=== PATIENT | female | born 1965 | race American Indian/Alaskan Native ===

== ENCOUNTER 2016-06-18 11:36 | Emergency (ER) | payer MEDICARE ==
--- NOTE | 2016-06-18 12:28 | Emergency Department Report ---
Chief Complaint: Seizure Stated Complaint: SEIZURES/NAUSEA/PAIN Time Seen by Provider: 06/18/16 12:22 - HPI History of Present Illness: 51-year-old known seizure patient comes in for having seizures that started on of last week while she was having a dilatation of her esophagus at [facility]. Patient reports that they had intervene at the hospital and gave her a cocktail of Keppra Ativan and Dilantin. Patient refused to stay so she went home and since she's been there she has had several seizures. Patient does discloses she's been out of her Dilantin since she's completed her Ativan she does have Keppra that she has that she's been taking. Patient admits to nausea took her last Phenergan yesterday. - Exam Vital Signs: Vital Signs 06/18/16 11:44 Temperature 98.7 F Pulse Rate 74 Respiratory 16 Rate Blood Pressure 142/82 O2 Sat by Pulse 100 Oximetry Physical Exam: Patient was alert and oriented some repetitive I movement of her right eye as well as her speech was slurred lip with quivering. All of a sudden I turned around she was actively seizing I was able to catch her bring her down to the floor without hitting her head. I call for help nurse and tech Mag came to assist. Patient was transported by stretcher from the exam room to the main ER with assistance of charge nurse and a morals squad police officer. MSE screening note: Focused history and physical exam performed. Due to findings the following was ordered: Patient be evaluated in the back appropriate labs CBC CMP Dilantin Keppra orders were placed ED Disposition for MSE Condition: Stable
[2016-06-18] MEDS ORDERED: ATIVAN ONE (12:38)
[2016-06-18] MEDS ORDERED: KEPPRA 1,000 MG/NS 0.75% 100ML 100 ML IV ONE ×2 (12:39→12:45)
[2016-06-18] MEDS ORDERED: ATIVAN IV ONE (12:45)
[2016-06-18] MEDS ORDERED: VALIUM IV ONE (13:47)
[2016-06-18] MEDS ORDERED: ZOFRAN IV ONE (13:47)
[2016-06-18] MEDS ORDERED: SUBLIMAZE IV ONE ×4 (13:48→17:00)
--- NOTE | 2016-06-18 13:55 | Emergency Department Report ---
HPI - General Chief Complaint: Seizure Time Seen by Provider: 06/18/16 13:22 - HPI HPI: The patient is a 51-year-old female who presents for evaluation of pain. The patient reports pain all over her entire body, worse to the bilateral upper back and shoulders, 10 out of 10 in severity, throbbing in quality, exacerbated with movement of the upper back. She states that her symptoms began after seizure at 10 PM last night. She states that she has experienced multiple seizures since including here in the emergency department. She states that she is currently experiencing a seizure. The patient denies fever, traumatic injury to the head or back, headache, neck pain, neck stiffness, vision or hearing changes, smell or taste changes, paresthesias, facial drooping, slurred speech, urine or bowel incontinence or retention, or other focal neurological deficit. ED Past Medical Hx - Past Medical History Hx Hypertension: Yes Hx Deep Vein Thrombosis: No Hx GERD: Yes Hx Arthritis: Yes (back and hip and bilat knees) Hx Seizures: Yes Hx Asthma: No Hx HIV: No Additional medical history: ANEMIA - Surgical History Hx Pacemaker: No Hx Internal Defibrillator: No Hx Cholecystectomy: Yes Additional Surgical History: hysterectomy. SAM FUNDOPLICATION X 3. ERCP - Social History Smoking Status: Never Smoker Substance Use Type: Prescribed - Medications Home Medications: Home Medications Medication Instructions Recorded Confirmed Last Taken Type Zolpidem [Ambien] 5 mg PO HS 10/13/13 06/01/16 10/20/13 History 5mg Celecoxib [celeBREX] 200 mg PO DAILY 10/14/13 06/01/16 10/13/13 History Dexlansoprazole [Dexilant] 60 mg PO DAILY 10/14/13 06/01/16 10/21/13 History 60mg Estrogens, Conjugated [Premarin] 1.25 mg PO DAILY 10/14/13 06/01/16 10/21/13 History 1.25mg Furosemide 40 mg PO DAILY 10/14/13 06/01/16 10/21/13 History 40mg Metoprolol Tartrate 25 mg PO DAILY 10/14/13 06/01/16 10/21/13 History 25mg Paroxetine HCl [PARoxetine] 40 mg PO DAILY 10/14/13 06/01/16 10/21/13 History 40mg Furosemide [Lasix TAB] 40 mg PO QDAY #30 tablet 06/01/16 Unknown Rx Metoprolol [Lopressor TAB] 25 mg PO DAILY #30 tablet 06/01/16 Unknown Rx Potassium Chloride [K-Dur] 10 meq PO DAILY #30 06/01/16 06/01/16 10/21/13 Rx 10meq Cyclobenzaprine HCl [Flexeril 5 MG 5 mg PO Q8HR PRN #10 tab 06/18/16 Unknown Rx TAB] Phenytoin [Dilantin] 300 mg PO Q8HR #40 capsule 06/18/16 Unknown Rx levETIRAcetam [Keppra TAB] 750 mg PO BID #30 tablet 06/18/16 Unknown Rx ED Review of Systems ROS: Stated complaint: SEIZURES/NAUSEA/PAIN Other details as noted in HPI Constitutional: denies: fever ENT: denies: throat or neck pain Respiratory: denies: cough, shortness of breath Cardiovascular: denies: chest pain Endocrine: denies unexplained weight loss or gain Gastrointestinal: denies: abdominal pain, nausea Genitourinary: denies: dysuria Musculoskeletal: denies: leg swelling Skin: denies: rash Neurological: reports seizure denies: headache Hematological/Lymphatic: denies: easy bleeding or easy bruising Psych: denies sadness or hopelessness Physical Exam - Physical Exam Vital Signs: Vital Signs 06/18/16 11:44 Temperature 98.7 F Pulse Rate 74 Respiratory 16 Rate Blood Pressure 142/82 O2 Sat by Pulse 100 Oximetry Physical Exam: General: well-nourished, well-developed, no acute distress Head: Normocephalic, atraumatic Eyes: normal sclera, PERRL, EOM intact, no nystagmus ENT: Mucous membranes are pink and moist Neck: trachea midline, neck supple, No neck stiffness, no cervical adenopathy Respiratory: Breath sounds equal bilaterally, no wheezing, rales, or rhonchi Cardio: S1 and S2 present, no murmurs, rubs, gallops, capillary refill is brisk Abdomen: Normoactive bowel sounds, soft abdomen, no rigidity, no guarding or rebound tenderness Musc: No pitting edema Skin: No rash Neuro: alert oriented x4, normal cognition, speech normal, no facial drooping, no uvula or tongue deviation on protrusion, no deficit with rotation of neck or shoulder shrug, no obvious gross motor deficit in the upper or lower extremities with flexion or extension bilaterally, no obvious gross sensation deficit, 2+ symmetric reflexes on DTR testing, no coordination deficit with [id number] coord testing, romberg negative, Psych: Normal affect ED Course Vital Signs 06/18/16 11:44 Temperature 98.7 F Pulse Rate 74 Respiratory 16 Rate Blood Pressure 142/82 O2 Sat by Pulse 100 Oximetry ED Medical Decision Making - Lab Data Result diagrams: 06/18/16 Unknown 06/18/16 Unknown - Medical Decision Making The patient was seen and examined by myself. The patient is placed on a lunchroom monitor and continuous pulse ox. On initial evaluation, the patient was found to be in no distress. As there are no neuro deficits or other findings on examination concerning for acute intracranial disease process, and as the patient's symptoms are consistent with psuedoseizure, a CAT scan of the head will not be obtained at this time. IV access is established and the patient is given IV valium and fentanyl for her pain. Lab results were unremarkable. The patient was reevaluated and reported that their symptoms were markedly improved. The patient is stable for discharge with outpatient follow-up. The patient is given follow-up and return instructions. The patient expressed understanding and agreed with the plan. The patient is discharged in stable condition. Critical care attestation.: If time is entered above; I have spent that time in minutes in the direct care of this critically ill patient, excluding procedure time. ED Disposition Clinical Impression: Seizure, Acute upper back pain, Myalgia Disposition: DISCHARGED TO HOME OR SELFCARE Is pt being admited?: No Does the pt Need Aspirin: No Condition: Stable Instructions: Epilepsy (ED), Musculoskeletal Pain (ED) Prescriptions: Phenytoin [Dilantin] 300 mg PO Q8HR #40 capsule levETIRAcetam [Keppra TAB] 750 mg PO BID #30 tablet Referrals: JOSESITO RATLIFF JR, MD [Primary Care Provider] - 3-5 Days Time of Disposition: 15:38
[2016-06-18 14:59] LABS: Hematocrit 31.8 % (30.3-42.9); Hemoglobin 10.4 gm/dl (10.1-14.3); Mean Corpuscular HGB Conc 33 % (30-34); Mean Corpuscular Hemoglobin 32 pg (28-32); Mean Corpuscular Volume 97 fl (79-97); Platelet Count 265 K/mm3 (140-440); Red Blood Count 3.29 M/mm3 (3.65-5.03); Red Cell Distribution Width 12.4 % (13.2-15.2); White Blood Count 5.6 K/mm3 (4.5-11.0)
[2016-06-18] MEDS ORDERED: NACL 0.9% 1000 ML 1,000 ML IV ONE (14:59)
[2016-06-18 15:00] VITALS: BP 137/69
[2016-06-18 15:19] LABS: Anion Gap 17 mmol/L; Blood Urea Nitrogen 13 mg/dL (7-17); Calcium 8.4 mg/dL (8.4-10.2); Carbon Dioxide 25 mmol/L (22-30); Chloride 103.2 mmol/L (98-107); Glucose 96 mg/dL (65-100); Potassium 3.5 mmol/L (3.6-5.0); Sodium 142 mmol/L (137-145)
[2016-06-18] MEDS ORDERED: SUBLIMAZE ONE (16:17)
[2016-06-18] MEDS ORDERED: FLUSH HEPARIN IV ONE ×2 (16:18→16:34)
[2016-06-18 17:07] LABS: Bilirubin,Urine NEG (Negative); Blood,Urine NEG (Negative); Ketones,Urine NEG (Negative); Leukocyte Esterase,Urine TR (Negative); Mucus,Urine FEW /HPF; Nitrite,Urine NEG (Negative); Protein,Urine <15 mg/dL mg/dL (Negative); Urobilinogen,Urine < 2.0 mg/dL (<2.0)
== END 2016-06-18 16:46 | disposition home or self-care (01) ==
LOC: ED 11:36
DX: R56.9 Unspecified convulsions (principal); M54.6 Pain in thoracic spine; M79.1 Myalgia; I10 Essential (primary) hypertension; K21.9 Gastro-esophageal reflux disease without esophagitis; M19.90 Unspecified osteoarthritis, unspecified site; Z90.49 Acquired absence of other specified parts of digestive tract; Z90.710 Acquired absence of both cervix and uterus
CPT/HCPCS: 36415; 80048; 80177; 80185; 81001; 85027; 96361; 96365; 96375; 99284; J1642; J1953; J2060; J2405; J3010; J3360; J7030

== ENCOUNTER 2016-07-16 14:08 | Emergency (ER) | payer MEDICARE ==
--- NOTE | 2016-07-16 19:10 | Emergency Department Report ---
ED General Adult HPI - General Chief complaint: Seizure Stated complaint: SEIZURES/HEADACHE/NAUSEA/EMESIS Time Seen by Provider: 07/16/16 17:08 Source: patient Mode of arrival: Wheelchair Limitations: No Limitations - Related Data Home Medications Medication Instructions Recorded Confirmed Last Taken Zolpidem [Ambien] 5 mg PO HS 10/13/13 06/01/16 10/20/13 5mg Celecoxib [celeBREX] 200 mg PO DAILY 10/14/13 06/01/16 10/13/13 Dexlansoprazole [Dexilant] 60 mg PO DAILY 10/14/13 06/01/16 10/21/13 60mg Estrogens, Conjugated [Premarin] 1.25 mg PO DAILY 10/14/13 06/01/16 10/21/13 1.25mg Furosemide 40 mg PO DAILY 10/14/13 06/01/16 10/21/13 40mg Metoprolol Tartrate 25 mg PO DAILY 10/14/13 06/01/16 10/21/13 25mg Paroxetine HCl [PARoxetine] 40 mg PO DAILY 10/14/13 06/01/16 10/21/13 40mg Previous Rx's Medication Instructions Recorded Last Taken Type Furosemide [Lasix TAB] 40 mg PO QDAY #30 tablet 06/01/16 Unknown Rx Metoprolol [Lopressor TAB] 25 mg PO DAILY #30 tablet 06/01/16 Unknown Rx Potassium Chloride [K-Dur] 10 meq PO DAILY #30 06/01/16 10/21/13 Rx 10meq Cyclobenzaprine HCl [Flexeril 5 MG 5 mg PO Q8HR PRN #10 tab 06/18/16 Unknown Rx TAB] Phenytoin [Dilantin] 300 mg PO Q8HR #40 capsule 06/18/16 Unknown Rx levETIRAcetam [Keppra TAB] 750 mg PO BID #30 tablet 06/18/16 Unknown Rx Allergies Allergy/AdvReac Type Severity Reaction Status Date / Time hydromorphone HCl AdvReac Itching Verified 05/31/16 17:37 [From Dilaudid] metoclopramide HCl AdvReac Seizure Verified 05/31/16 17:37 [From Reglan] tiagabine HCl [From Gabitril] AdvReac Seizure Verified 05/31/16 17:37 I V DYE AdvReac Itching Uncoded 05/31/16 17:37 ED Review of Systems ROS: Stated complaint: SEIZURES/HEADACHE/NAUSEA/EMESIS Other details as noted in HPI ED Past Medical Hx - Past Medical History Hx Hypertension: Yes Hx Deep Vein Thrombosis: No Hx GERD: Yes Hx Arthritis: Yes (back and hip and bilat knees) Hx Seizures: Yes Hx Asthma: No Hx HIV: No Additional medical history: ANEMIA - Surgical History Hx Pacemaker: No Hx Internal Defibrillator: No Hx Cholecystectomy: Yes Additional Surgical History: hysterectomy. SAM FUNDOPLICATION X 3. ERCP - Social History Smoking Status: Never Smoker Substance Use Type: None - Medications Home Medications: Home Medications Medication Instructions Recorded Confirmed Last Taken Type Zolpidem [Ambien] 5 mg PO HS 10/13/13 06/01/16 10/20/13 History 5mg Celecoxib [celeBREX] 200 mg PO DAILY 10/14/13 06/01/16 10/13/13 History Dexlansoprazole [Dexilant] 60 mg PO DAILY 10/14/13 06/01/16 10/21/13 History 60mg Estrogens, Conjugated [Premarin] 1.25 mg PO DAILY 10/14/13 06/01/16 10/21/13 History 1.25mg Furosemide 40 mg PO DAILY 10/14/13 06/01/16 10/21/13 History 40mg Metoprolol Tartrate 25 mg PO DAILY 10/14/13 06/01/16 10/21/13 History 25mg Paroxetine HCl [PARoxetine] 40 mg PO DAILY 10/14/13 06/01/16 10/21/13 History 40mg Furosemide [Lasix TAB] 40 mg PO QDAY #30 tablet 06/01/16 Unknown Rx Metoprolol [Lopressor TAB] 25 mg PO DAILY #30 tablet 06/01/16 Unknown Rx Potassium Chloride [K-Dur] 10 meq PO DAILY #30 06/01/16 06/01/16 10/21/13 Rx 10meq Cyclobenzaprine HCl [Flexeril 5 MG 5 mg PO Q8HR PRN #10 tab 06/18/16 Unknown Rx TAB] Phenytoin [Dilantin] 300 mg PO Q8HR #40 capsule 06/18/16 Unknown Rx levETIRAcetam [Keppra TAB] 750 mg PO BID #30 tablet 06/18/16 Unknown Rx ED Physical Exam - General Limitations: No Limitations ED Course Vital Signs 07/16/16 15:19 Temperature 98.3 F Pulse Rate 73 Respiratory 16 Rate Blood Pressure 159/99 O2 Sat by Pulse 100 Oximetry Critical care attestation.: If time is entered above; I have spent that time in minutes in the direct care of this critically ill patient, excluding procedure time. ED Disposition Condition: Stable Referrals: JOSESITO RATLIFF JR, MD [Primary Care Provider] - 3-5 Days
[2016-07-16] MEDS ORDERED: KEPPRA 1,000 MG/NS 0.75% 100ML 1,000 MG/100 ML BAG IV ONE (19:36)
[2016-07-16] MEDS ORDERED: BENADRYL IV ONE (19:50)
[2016-07-16] MEDS ORDERED: ATIVAN IV ONE (19:50)
[2016-07-16] MEDS ORDERED: ZOFRAN IV ONE (19:50)
[2016-07-16 20:00] LABS: Basophils % (Auto) 0.8 % (0.0-1.8); Eosinophils % (Auto) 1.1 % (0.0-4.3); Hematocrit 34.2 % (30.3-42.9); Hemoglobin 11.1 gm/dl (10.1-14.3); Mean Corpuscular HGB Conc 33 % (30-34); Mean Corpuscular Hemoglobin 32 pg (28-32); Mean Corpuscular Volume 97 fl (79-97); Platelet Count 313 K/mm3 (140-440); Red Blood Count 3.54 M/mm3 (3.65-5.03); White Blood Count 6.8 K/mm3 (4.5-11.0)
[2016-07-16 20:04] LABS: Alanine Aminotransferase 7 units/L (7-56); Albumin 4.3 g/dL (3.9-5); Albumin/Globulin Ratio 1.5 %; Alkaline Phosphatase 77 units/L (35-129); Anion Gap 16 mmol/L; Bilirubin,Total 0.2 mg/dL (0.1-1.2); Blood Urea Nitrogen 12 mg/dL (7-17); Carbon Dioxide 27 mmol/L (22-30); Chloride 98.7 mmol/L (98-107); Glucose 97 mg/dL (65-100); Potassium 3.3 mmol/L (3.6-5.0); Sodium 138 mmol/L (137-145); Total Protein 7.2 g/dL (6.3-8.2)
--- NOTE | 2016-07-16 20:04 | Emergency Department Report ---
HPI - General Chief Complaint: Seizure Time Seen by Provider: 07/16/16 17:08 - HPI HPI: Room 3 The patient is a 51-year-old female presenting with a chief complaint of seizures. The patient states she has been attempting to make her Keppra and Dilantin last by taking incomplete doses and stretching the mild. Patient states 2 days ago she had 2 generalized tonic-clonic seizures. Yesterday the patient again had 2 generalized tonic-clonic seizures and today the patient had a seizure at home and one in the waiting. The patient's significant other states that she fell from the chair door her last seizure in the hospital and appeared to injure both of her knees. The patient states her right knee hurts greater than her left Location: Central nervous system, bilateral knees Duration: [see above] Quality: Pain Severity: Moderate Modifying factors: [see above] Context: [see above] Mode of transportation: [not driving] ED Past Medical Hx - Past Medical History Hx Hypertension: Yes Hx GERD: Yes Hx Arthritis: Yes (back and hip and bilat knees) Hx Seizures: Yes Additional medical history: ANEMIA - Surgical History Hx Cholecystectomy: Yes Additional Surgical History: hysterectomy. SAM FUNDOPLICATION X 3. ERCP - Family History Family history: no significant - Social History Smoking Status: Never Smoker Substance Use Type: None - Medications Home Medications: Home Medications Medication Instructions Recorded Confirmed Last Taken Type Zolpidem [Ambien] 5 mg PO HS 10/13/13 06/01/16 10/20/13 History 5mg Celecoxib [celeBREX] 200 mg PO DAILY 10/14/13 06/01/16 10/13/13 History Dexlansoprazole [Dexilant] 60 mg PO DAILY 10/14/13 06/01/16 10/21/13 History 60mg Estrogens, Conjugated [Premarin] 1.25 mg PO DAILY 10/14/13 06/01/16 10/21/13 History 1.25mg Furosemide 40 mg PO DAILY 10/14/13 06/01/16 10/21/13 History 40mg Metoprolol Tartrate 25 mg PO DAILY 10/14/13 06/01/16 10/21/13 History 25mg Paroxetine HCl [PARoxetine] 40 mg PO DAILY 10/14/13 06/01/16 10/21/13 History 40mg Furosemide [Lasix TAB] 40 mg PO QDAY #30 tablet 06/01/16 Unknown Rx Metoprolol [Lopressor TAB] 25 mg PO DAILY #30 tablet 06/01/16 Unknown Rx Potassium Chloride [K-Dur] 10 meq PO DAILY #30 06/01/16 06/01/16 10/21/13 Rx 10meq Cyclobenzaprine HCl [Flexeril 5 MG 5 mg PO Q8HR PRN #10 tab 06/18/16 Unknown Rx TAB] Phenytoin [Dilantin] 300 mg PO Q8HR #40 capsule 06/18/16 Unknown Rx Ibuprofen [Motrin 800 MG tab] 800 mg PO Q8HR PRN #20 tablet 07/16/16 Unknown Rx Phenytoin Sodium Extended 300 mg PO QHS #90 capsule 07/16/16 Unknown Rx levETIRAcetam [Keppra TAB] 750 mg PO BID #30 tablet 07/16/16 Unknown Rx traMADol [Ultram] 50 mg PO Q6HR PRN #14 tablet 07/16/16 Unknown Rx ED Review of Systems ROS: Stated complaint: SEIZURES/HEADACHE/NAUSEA/EMESIS Other details as noted in HPI Comment: All other systems reviewed and negative Constitutional: denies: chills, fever Eyes: denies: eye pain, eye discharge, vision change ENT: denies: ear pain, throat pain Respiratory: denies: cough, shortness of breath, wheezing Cardiovascular: denies: chest pain, palpitations Endocrine: no symptoms reported Gastrointestinal: denies: abdominal pain, nausea, diarrhea Genitourinary: denies: urgency, dysuria, discharge Musculoskeletal: denies: back pain, joint swelling, arthralgia Skin: denies: rash, lesions Neurological: other ("tremors", seizures) Psychiatric: denies: anxiety, depression Hematological/Lymphatic: denies: easy bleeding, easy bruising Physical Exam - Physical Exam Vital Signs: Vital Signs 07/16/16 15:19 Temperature 98.3 F Pulse Rate 73 Respiratory 16 Rate Blood Pressure 159/99 O2 Sat by Pulse 100 Oximetry Physical Exam: GENERAL: The patient is well-developed well-nourished female lying on stretcher appearing "jittery" which the patient states she feels when she is "trying" to have a seizure. [] HEENT: Normocephalic. Atraumatic. Extraocular motions are intact. Patient has moist mucous membranes. NECK: Supple. Trachea midline CHEST/LUNGS: Clear to auscultation. There is no respiratory distress noted. HEART/CARDIOVASCULAR: Regular. There is no tachycardia. There is no gallop rub or murmur. ABDOMEN: Abdomen is soft, nontender. Patient has normal bowel sounds. There is no abdominal distention. SKIN: There is no rash. There is no edema. There is no diaphoresis. NEURO: The patient is awake, alert, and oriented. The patient is cooperative. The patient's face was twitching however otherwise cranial nerves II through XII grossly intact, no drift. The patient has normal speech MUSCULOSKELETAL: There is no evidence of acute injury. ED Course Vital Signs 07/16/16 15:19 Temperature 98.3 F Pulse Rate 73 Respiratory 16 Rate Blood Pressure 159/99 O2 Sat by Pulse 100 Oximetry ED Medical Decision Making - Lab Data Result diagrams: 07/16/16 19:24 07/16/16 19:24 Laboratory Tests 07/16/16 07/16/16 07/16/16 19:24 19:24 19:24 WBC 6.8 RBC 3.54 L Hgb 11.1 Hct 34.2 MCV 97 MCH 32 MCHC 33 RDW 13.0 L Plt Count 313 Lymph % (Auto) 41.9 H [place] % (Auto) 4.6 Eos % (Auto) 1.1 Baso % (Auto) 0.8 Lymph # 2.8 [place] # 0.3 Eos # 0.1 Baso # 0.1 Seg Neutrophils % 51.6 Seg Neutrophils # 3.5 Sodium 138 Potassium 3.3 L Chloride 98.7 Carbon Dioxide 27 Anion Gap 16 BUN 12 Creatinine 1.0 Estimated GFR > 60 BUN/Creatinine Ratio 12.00 Glucose 97 Calcium 9.0 Total Bilirubin 0.2 Direct Bilirubin < 0.2 Indirect Bilirubin 0.0 AST 16 ALT 7 Alkaline Phosphatase 77 Total Protein 7.2 Albumin 4.3 Albumin/Globulin Ratio 1.5 Phenytoin 3.2 L - Radiology Data Radiology results: report reviewed (bilateral knee x-rays), image reviewed ( bilateral knee x-rays) interpreted by me: Bilateral knee x-rays-no definite acute fractures Bilateral knee x-rays (read by radiologist)-old fractures of the right medial femoral condyle and left fibula. No acute fractures seen. There is no joint effusion. - Differential Diagnosis seizures Critical care attestation.: If time is entered above; I have spent that time in minutes in the direct care of this critically ill patient, excluding procedure time. ED Disposition Clinical Impression: Seizure, Contusion of right knee, Contusion of left knee Disposition: DISCHARGED TO HOME OR SELFCARE Is pt being admited?: No Does the pt Need Aspirin: No Condition: Stable Instructions: Epilepsy (ED) Additional Instructions: Return to the emergency department immediately should you develop worsening symptoms, fever, inability to tolerate food or liquid or any other concerns. Prescriptions: Ibuprofen [Motrin 800 MG tab] 800 mg PO Q8HR PRN #20 tablet PRN Reason: Pain levETIRAcetam [Keppra TAB] 750 mg PO BID #30 tablet Phenytoin Sodium Extended 300 mg PO QHS #90 capsule traMADol [Ultram] 50 mg PO Q6HR PRN #14 tablet PRN Reason: Pain Referrals: JOSESITO RATLIFF JR, MD [Primary Care Provider] - 3-5 Days ROLF RUSSELL MD [Staff Physician] - 2-3 Days (Dr. Russell is an orthopedic surgeon. Please follow up with him for further evaluation of your knee pain) Time of Disposition: 22:05
[2016-07-16 20:09] LABS: Bilirubin,Direct < 0.2 mg/dL (0-0.2)
[2016-07-16] MEDS ORDERED: CEREBYX 1,000 MG.PE in NACL 0.9% 100 ML IV ONE (20:26)
[2016-07-16] MEDS ORDERED: K-DUR PO ONE (21:11)
--- NOTE | 2016-07-16 21:51 | XRay Report ---
FINAL REPORT PROCEDURE: XR KNEE BILAT 3V TECHNIQUE: Bilateral knee radiographs, standing AP view. HISTORY: pain after fall COMPARISON: No prior studies are available for comparison. FINDINGS: Right knee: Fracture (s) and/or Dislocation(s): No acute fracture is seen. There is a curvilinear density along the medial femoral condyle suggesting old fracture. Joint space(s): Normal. Soft tissues: Normal. Bone mineralization: Normal. Foreign bodies: None. Left knee: Fracture (s) and/or Dislocation(s): There is a cortical defect of the proximal fibula which could be a nondisplaced fracture. However, this appears to be old. Joint space(s): Normal. Soft tissues: Normal. Bone mineralization: Normal. Foreign bodies: None. IMPRESSION: Old fractures of the right medial femoral condyle and left fibula. No acute fracture is seen. There is no joint effusion.
[2016-07-16] MEDS ORDERED: ULTRAM PO ONE (22:41)
[2016-07-16 22:45] VITALS: BP 148/92
== END 2016-07-16 22:56 | disposition home or self-care (01) ==
LOC: ED 14:08
DX: S80.02XA Contusion of left knee, initial encounter (principal); S80.01XA Contusion of right knee, initial encounter; R56.9 Unspecified convulsions; I10 Essential (primary) hypertension; K21.9 Gastro-esophageal reflux disease without esophagitis; M19.90 Unspecified osteoarthritis, unspecified site; Z90.49 Acquired absence of other specified parts of digestive tract; Z90.710 Acquired absence of both cervix and uterus; X58.XXXA Exposure to other specified factors, initial encounter; Y93.89 Activity, other specified; Y99.8 Other external cause status; Y92.89 Other specified places as the place of occurrence of the external cause
CPT/HCPCS: 29505; 36415; 73562; 80048; 80074; 80185; 85025; 96365; 96366; 96368; 96375; 99284; J1200; J1953; J2060; J2405; Q2009

== ENCOUNTER 2016-11-02 16:07 | Emergency (ER) | payer MEDICARE ==
[2016-11-02 17:29] LABS: Bilirubin,Urine NEG (Negative); Blood,Urine NEG (Negative); Ketones,Urine NEG (Negative); Leukocyte Esterase,Urine NEG (Negative); Mucus,Urine FEW /HPF; Nitrite,Urine NEG (Negative); Protein,Urine <15 mg/dL mg/dL (Negative); Urobilinogen,Urine < 2.0 mg/dL (<2.0); WBC,Urine < 1.0 /HPF (0.0-6.0)
[2016-11-02] MEDS ORDERED: KEPPRA 500 MG in D5W 100 ML IV ONE (20:48)
[2016-11-02] MEDS ORDERED: BENADRYL IV ONE (20:48)
[2016-11-02] MEDS ORDERED: NACL 0.9% 1000 ML 1,000 ML IV ONE (20:48)
[2016-11-02] MEDS ORDERED: ZOFRAN IV ONE (20:48)
[2016-11-02 20:54] LABS: Basophils % (Auto) 0.9 % (0.0-1.8); Hematocrit 27.6 % (30.3-42.9); Mean Corpuscular HGB Conc 33 % (30-34); Mean Corpuscular Hemoglobin 32 pg (28-32); Mean Corpuscular Volume 98 fl (79-97); Platelet Count 247 K/mm3 (140-440); Red Blood Count 2.82 M/mm3 (3.65-5.03); Red Cell Distribution Width 13.4 % (13.2-15.2); White Blood Count 6.5 K/mm3 (4.5-11.0)
[2016-11-02 21:12] LABS: Anion Gap 17 mmol/L; Blood Urea Nitrogen 10 mg/dL (7-17); Calcium 7.5 mg/dL (8.4-10.2); Carbon Dioxide 22 mmol/L (22-30); Chloride 104.7 mmol/L (98-107); Glucose 94 mg/dL (65-100); Sodium 141 mmol/L (137-145)
[2016-11-02] MEDS ORDERED: FIORICET PO ONE (21:22)
[2016-11-02 22:30] VITALS: BP 161/84
--- NOTE | 2016-11-02 22:46 | Emergency Department Report ---
ED Seizure HPI - General Chief Complaint: Seizure Stated Complaint: POSS SEIZURE Time Seen by Provider: 11/02/16 20:41 Source: patient Mode of arrival: Ambulatory Limitations: No Limitations - History of Present Illness Initial Comments: 51-year-old female presents to the emergency department complaining of seizures. Patient reports a history of seizures and that she ran out of her seizure medication last week. For the past 5 days, patient has had multiple seizures. Today she began having headache and nausea. There are no other complaints. MD Complaint: seizure -: Gradual, days(s) (5) Description of Episode: tonic-clonic movement Witnessed:: No Trauma: No Seizure History: known seizure disorder, history of non-compliance Place: home Possible Precipitating Event: none Associated Symptoms: other (headache, nausea) Treatments Prior to Arrival: none - Related Data Home Medications Medication Instructions Recorded Confirmed Last Taken Zolpidem [Ambien] 5 mg PO HS 10/13/13 06/01/16 10/20/13 5mg Celecoxib [celeBREX] 200 mg PO DAILY 10/14/13 06/01/16 10/13/13 Dexlansoprazole [Dexilant] 60 mg PO DAILY 10/14/13 06/01/16 10/21/13 60mg Estrogens, Conjugated [Premarin] 1.25 mg PO DAILY 10/14/13 06/01/16 10/21/13 1.25mg Furosemide 40 mg PO DAILY 10/14/13 06/01/16 10/21/13 40mg Metoprolol Tartrate 25 mg PO DAILY 10/14/13 06/01/16 10/21/13 25mg Paroxetine HCl [PARoxetine] 40 mg PO DAILY 10/14/13 06/01/16 10/21/13 40mg Previous Rx's Medication Instructions Recorded Last Taken Type Furosemide [Lasix TAB] 40 mg PO QDAY #30 tablet 06/01/16 Unknown Rx Metoprolol [Lopressor TAB] 25 mg PO DAILY #30 tablet 06/01/16 Unknown Rx Potassium Chloride [K-Dur] 10 meq PO DAILY #30 06/01/16 10/21/13 Rx 10meq Cyclobenzaprine HCl [Flexeril 5 MG 5 mg PO Q8HR PRN #10 tab 06/18/16 Unknown Rx TAB] Ibuprofen [Motrin 800 MG tab] 800 mg PO Q8HR PRN #20 tablet 07/16/16 Unknown Rx Phenytoin Sodium Extended 300 mg PO QHS #90 capsule 07/16/16 Unknown Rx traMADol [Ultram] 50 mg PO Q6HR PRN #14 tablet 07/16/16 Unknown Rx LORazepam [Ativan] 1 mg PO TID #60 tablet 11/02/16 Unknown Rx Phenytoin [Dilantin] 100 mg PO Q8HR #90 capsule 11/02/16 Unknown Rx levETIRAcetam [Keppra TAB] 750 mg PO BID #60 tablet 11/02/16 Unknown Rx Allergies Allergy/AdvReac Type Severity Reaction Status Date / Time hydromorphone HCl AdvReac Itching Verified 11/02/16 16:30 [From Dilaudid] metoclopramide HCl AdvReac Seizure Verified 11/02/16 16:30 [From Reglan] tiagabine HCl [From Gabitril] AdvReac Seizure Verified 11/02/16 16:30 I V DYE AdvReac Itching Uncoded 11/02/16 16:30 ED Review of Systems ROS: Stated complaint: POSS SEIZURE Other details as noted in HPI Comment: All other systems reviewed and negative Gastrointestinal: nausea Neurological: headache, other (seizure) ED Past Medical Hx - Past Medical History Previous Medical History?: Yes Hx Hypertension: Yes Hx Deep Vein Thrombosis: No Hx GERD: Yes Hx Arthritis: Yes (back and hip and bilat knees) Hx Seizures: Yes Hx Asthma: No Hx HIV: No Additional medical history: ANEMIA - Surgical History Past Surgical History?: Yes Hx Pacemaker: No Hx Internal Defibrillator: No Hx Cholecystectomy: Yes Additional Surgical History: hysterectomy. SAM FUNDOPLICATION X 3. ERCP. BACK SURGERY. PORT RIGHT CHEST - Family History Family history: no significant - Social History Smoking Status: Never Smoker Substance Use Type: Prescribed - Medications Home Medications: Home Medications Medication Instructions Recorded Confirmed Last Taken Type Zolpidem [Ambien] 5 mg PO HS 10/13/13 06/01/16 10/20/13 History 5mg Celecoxib [celeBREX] 200 mg PO DAILY 10/14/13 06/01/16 10/13/13 History Dexlansoprazole [Dexilant] 60 mg PO DAILY 10/14/13 06/01/16 10/21/13 History 60mg Estrogens, Conjugated [Premarin] 1.25 mg PO DAILY 10/14/13 06/01/16 10/21/13 History 1.25mg Furosemide 40 mg PO DAILY 10/14/13 06/01/16 10/21/13 History 40mg Metoprolol Tartrate 25 mg PO DAILY 10/14/13 06/01/16 10/21/13 History 25mg Paroxetine HCl [PARoxetine] 40 mg PO DAILY 10/14/13 06/01/16 10/21/13 History 40mg Furosemide [Lasix TAB] 40 mg PO QDAY #30 tablet 06/01/16 Unknown Rx Metoprolol [Lopressor TAB] 25 mg PO DAILY #30 tablet 06/01/16 Unknown Rx Potassium Chloride [K-Dur] 10 meq PO DAILY #30 06/01/16 06/01/16 10/21/13 Rx 10meq Cyclobenzaprine HCl [Flexeril 5 MG 5 mg PO Q8HR PRN #10 tab 06/18/16 Unknown Rx TAB] Ibuprofen [Motrin 800 MG tab] 800 mg PO Q8HR PRN #20 tablet 07/16/16 Unknown Rx Phenytoin Sodium Extended 300 mg PO QHS #90 capsule 07/16/16 Unknown Rx traMADol [Ultram] 50 mg PO Q6HR PRN #14 tablet 07/16/16 Unknown Rx LORazepam [Ativan] 1 mg PO TID #60 tablet 11/02/16 Unknown Rx Phenytoin [Dilantin] 100 mg PO Q8HR #90 capsule 11/02/16 Unknown Rx levETIRAcetam [Keppra TAB] 750 mg PO BID #60 tablet 11/02/16 Unknown Rx ED Physical Exam - General Limitations: No Limitations General appearance: alert, in no apparent distress - Head Head exam: Present: atraumatic, normocephalic - Eye Eye exam: Present: normal appearance, PERRL, EOMI - ENT ENT exam: Present: normal exam, normal orophraynx, mucous membranes moist - Neck Neck exam: Present: normal inspection, full ROM. Absent: tenderness - Respiratory Respiratory exam: Present: normal lung sounds bilaterally. Absent: respiratory distress - Cardiovascular Cardiovascular Exam: Present: regular rate, normal rhythm, normal heart sounds - GI/Abdominal GI/Abdominal exam: Present: soft, normal bowel sounds. Absent: distended, tenderness - Extremities Exam Extremities exam: Present: normal inspection, full ROM. Absent: tenderness - Back Exam Back exam: Present: normal inspection, full ROM. Absent: tenderness - Neurological Exam Neurological exam: Present: alert, oriented X3. Absent: motor sensory deficit - Skin Skin exam: Present: warm, dry, intact ED Course Vital Signs 11/02/16 11/02/16 11/02/16 16:21 19:21 19:30 Temperature 98.6 F Pulse Rate 70 Respiratory 17 Rate Blood Pressure 152/93 147/81 Blood Pressure [Left] O2 Sat by Pulse 100 100 100 Oximetry 11/02/16 11/02/16 11/02/16 19:44 20:00 20:30 Temperature 97.9 F Pulse Rate 57 L Respiratory 20 Rate Blood Pressure 153/88 143/82 Blood Pressure 160/72 [Left] O2 Sat by Pulse 100 100 100 Oximetry 11/02/16 11/02/16 11/02/16 21:00 21:30 22:00 Temperature Pulse Rate Respiratory Rate Blood Pressure 155/87 156/69 161/84 Blood Pressure [Left] O2 Sat by Pulse 99 97 100 Oximetry ED Medical Decision Making - Lab Data Result diagrams: 11/02/16 20:29 11/02/16 20:29 - Medical Decision Making Laboratory results reviewed and discussed with the patient. Patient reports feeling better with medication. There's been no further seizure activity in the emergency department. Her seizure medications will be refilled. Patient will be discharged home at this time to follow up with her primary care physician. - Differential Diagnosis medication noncompliance, seizure, electrolyte abnormality Critical care attestation.: If time is entered above; I have spent that time in minutes in the direct care of this critically ill patient, excluding procedure time. ED Disposition Clinical Impression: Seizure Disposition: DISCHARGED TO HOME OR SELFCARE Is pt being admited?: No Condition: Stable Instructions: Recurrent Seizures Adult (ED) Prescriptions: levETIRAcetam [Keppra TAB] 750 mg PO BID #60 tablet LORazepam [Ativan] 1 mg PO TID #60 tablet Phenytoin [Dilantin] 100 mg PO Q8HR #90 capsule Referrals: MIKE LANGLEY MD [Primary Care Provider] - 3-5 Days Time of Disposition: 23:09
== END 2016-11-02 23:41 | disposition home or self-care (01) ==
LOC: ED 16:07
DX: G40.409 Other generalized epilepsy and epileptic syndromes, not intractable, without status epilepticus (principal); I10 Essential (primary) hypertension; K21.9 Gastro-esophageal reflux disease without esophagitis; M19.90 Unspecified osteoarthritis, unspecified site; D64.9 Anemia, unspecified; Z88.8 Allergy status to other drugs, medicaments and biological substances
CPT/HCPCS: 36415; 80048; 80185; 81001; 85025; 96365; 96375; 99284; J1200; J1953; J2405; J7030

== ENCOUNTER 2017-06-24 20:54 | Emergency (ER) | payer MEDICARE ==
[2017-06-25] MEDS ORDERED: KEPPRA 1,000 MG/NS 0.75% 100ML 1,000 MG/100 ML BAG IV ONE ×2 (07:03→07:06)
[2017-06-25] MEDS ORDERED: BENADRYL ONE (07:07)
[2017-06-25] MEDS ORDERED: BENADRYL IV ONE (07:11)
[2017-06-25 07:19] LABS: Hemoglobin 13.6 gm/dl (10.1-14.3); Mean Corpuscular HGB Conc 33 % (30-34); Mean Corpuscular Hemoglobin 32 pg (28-32); Mean Corpuscular Volume 97 fl (79-97); Platelet Count 251 K/mm3 (140-440); Red Blood Count 4.22 M/mm3 (3.65-5.03); Red Cell Distribution Width 12.2 % (13.2-15.2)
--- NOTE | 2017-06-25 07:29 | Emergency Department Report ---
HPI - General Chief Complaint: Seizure Time Seen by Provider: 06/25/17 07:06 - HPI HPI: Room 1 The patient is a 52-year-old female presented with a chief complaint of seizures. The patient states she ran out of her Dilantin approximately 2 weeks ago and she has been taking her Keppra intermittently secondary to being low. Patient complains of diffuse body aches after having her seizures. Location: [facility], see above Duration: [See above] Quality: Aching Severity: Moderate Modifying factors: [see above] Context: [see above] Mode of transportation: [not driving] ED Past Medical Hx - Past Medical History Hx Hypertension: Yes Hx GERD: Yes Hx Arthritis: Yes (back and hip and bilat knees) Hx Seizures: Yes Additional medical history: ANEMIA - Surgical History Hx Cholecystectomy: Yes Additional Surgical History: hysterectomy. SAM FUNDOPLICATION X 3. ERCP. BACK SURGERY. PORT RIGHT CHEST - Social History Smoking Status: Never Smoker Substance Use Type: None - Medications Home Medications: Home Medications Medication Instructions Recorded Confirmed Last Taken Type Zolpidem [Ambien] 5 mg PO HS 10/13/13 06/01/16 10/20/13 History 5mg Celecoxib [celeBREX] 200 mg PO DAILY 10/14/13 06/01/16 10/13/13 History Dexlansoprazole [Dexilant] 60 mg PO DAILY 10/14/13 06/01/16 10/21/13 History 60mg Estrogens, Conjugated [Premarin] 1.25 mg PO DAILY 10/14/13 06/01/16 10/21/13 History 1.25mg Furosemide 40 mg PO DAILY 10/14/13 06/01/16 10/21/13 History 40mg Metoprolol Tartrate 25 mg PO DAILY 10/14/13 06/01/16 10/21/13 History 25mg Paroxetine HCl [PARoxetine] 40 mg PO DAILY 10/14/13 06/01/16 10/21/13 History 40mg Furosemide [Lasix TAB] 40 mg PO QDAY #30 tablet 06/01/16 Unknown Rx Metoprolol [Lopressor TAB] 25 mg PO DAILY #30 tablet 06/01/16 Unknown Rx Potassium Chloride [K-Dur] 10 meq PO DAILY #30 06/01/16 06/01/16 10/21/13 Rx 10meq Cyclobenzaprine HCl [Flexeril 5 MG 5 mg PO Q8HR PRN #10 tab 06/18/16 Unknown Rx TAB] Ibuprofen [Motrin 800 MG tab] 800 mg PO Q8HR PRN #20 tablet 07/16/16 Unknown Rx traMADol [Ultram] 50 mg PO Q6HR PRN #14 tablet 07/16/16 Unknown Rx LORazepam [Ativan] 1 mg PO TID #60 tablet 11/02/16 Unknown Rx Phenytoin [Dilantin] 100 mg PO Q8HR #90 capsule 11/02/16 Unknown Rx Ibuprofen [Motrin 800 MG tab] 800 mg PO Q8HR PRN #20 tablet 06/25/17 Unknown Rx Phenytoin Sodium Extended 300 mg PO QHS #90 capsule 06/25/17 Unknown Rx levETIRAcetam [Keppra TAB] 750 mg PO BID #60 tablet 06/25/17 Unknown Rx ED Review of Systems ROS: Stated complaint: SEIZURE ACTIVITY Other details as noted in HPI Musculoskeletal: myalgia Physical Exam - Physical Exam Vital Signs: Vital Signs 06/24/17 21:08 Temperature 98.7 F Pulse Rate 50 L Respiratory 16 Rate Blood Pressure 136/101 O2 Sat by Pulse 97 Oximetry Physical Exam: GENERAL: The patient is well-developed well-nourished female lying on stretcher not appearing to be in acute distress. [] HEENT: Normocephalic. Atraumatic. Extraocular motions are intact. Patient has moist mucous membranes. NECK: Supple. Trachea midline CHEST/LUNGS: There is no respiratory distress noted. HEART/CARDIOVASCULAR: Regular. There is no tachycardia. ABDOMEN:There is no abdominal distention. SKIN: There is no rash. There is no edema. There is no diaphoresis. NEURO: The patient is awake, alert, and oriented. The patient is cooperative. The patient has normal speech MUSCULOSKELETAL: There is no evidence of acute injury. ED Course Vital Signs 06/24/17 21:08 Temperature 98.7 F Pulse Rate 50 L Respiratory 16 Rate Blood Pressure 136/101 O2 Sat by Pulse 97 Oximetry ED Medical Decision Making - Lab Data Result diagrams: 06/25/17 Unknown 06/25/17 Unknown Laboratory Tests 06/25/17 06/25/17 06/25/17 Unknown Unknown Unknown WBC 5.7 RBC 4.22 Hgb 13.6 Hct 41.0 MCV 97 MCH 32 MCHC 33 RDW 12.2 L Plt Count 251 Lymph % (Auto) Manager Occupational Add Manual Diff Complete Total Counted 100 Seg Neuts % (Manual) 35.0 L Band Neutrophils % 0 Lymphocytes % (Manual) 58.0 H Reactive Lymphs % (Man) 0 Monocytes % (Manual) 7.0 Eosinophils % (Manual) 0 Basophils % (Manual) 0 Metamyelocytes % 0 Myelocytes % 0 Promyelocytes % 0 Blast Cells % 0 Nucleated RBC % Not Reportable Seg Neutrophils # Man 2.0 Band Neutrophils # 0.0 Lymphocytes # (Manual) 3.3 Abs React Lymphs (Man) 0.0 Monocytes # (Manual) 0.4 Eosinophils # (Manual) 0.0 Basophils # (Manual) 0.0 Metamyelocytes # 0.0 Myelocytes # 0.0 Promyelocytes # 0.0 Blast Cells # 0.0 WBC Morphology Not Reportable Hypersegmented Neuts Not Reportable Hyposegmented Neuts Not Reportable Hypogranular Neuts Not Reportable Smudge Cells Not Reportable Toxic Granulation Not Reportable Toxic Vacuolation Not Reportable Dohle Bodies Not Reportable Pelger-Huet Anomaly Not Reportable Omar Rods Not Reportable Platelet Estimate Not Reportable Clumped Platelets Not Reportable Plt Clumps, EDTA Not Reportable Large Platelets Not Reportable Giant Platelets Not Reportable Platelet Satelliting Not Reportable Plt Morphology Comment Not Reportable RBC Morphology Normal Dimorphic RBCs Not Reportable Polychromasia Not Reportable Hypochromasia Not Reportable Poikilocytosis Not Reportable Anisocytosis Not Reportable Microcytosis Not Reportable Macrocytosis Not Reportable Spherocytes Not Reportable Pappenheimer Bodies Not Reportable Sickle Cells Not Reportable Target Cells Not Reportable Tear Drop Cells Not Reportable Ovalocytes Not Reportable Helmet Cells Not Reportable Deshpande-Cherokee Bodies Not Reportable [place] Rings Not Reportable [place] Cells Not Reportable Bite Cells Not Reportable Crenated Cell Not Reportable Elliptocytes Not Reportable Acanthocytes (Spur) Not Reportable Rouleaux Not Reportable Hemoglobin C Crystals Not Reportable Schistocytes Not Reportable Malaria parasites Not Reportable Bentley Bodies Not Reportable Hem Pathologist Commnt No Sodium 142 Potassium 3.5 L Chloride 99.9 Carbon Dioxide 27 Anion Gap 19 BUN 13 Creatinine 0.9 Estimated GFR > 60 BUN/Creatinine Ratio 14 Glucose 96 Calcium 9.3 Magnesium 1.90 Phenytoin 06/25/17 Unknown WBC RBC Hgb Hct MCV MCH MCHC RDW Plt Count Lymph % (Auto) Add Manual Diff Total Counted Seg Neuts % (Manual) Band Neutrophils % Lymphocytes % (Manual) Reactive Lymphs % (Man) Monocytes % (Manual) Eosinophils % (Manual) Basophils % (Manual) Metamyelocytes % Myelocytes % Promyelocytes % Blast Cells % Nucleated RBC % Seg Neutrophils # Man Band Neutrophils # Lymphocytes # (Manual) Abs React Lymphs (Man) Monocytes # (Manual) Eosinophils # (Manual) Basophils # (Manual) Metamyelocytes # Myelocytes # Promyelocytes # Blast Cells # WBC Morphology Hypersegmented Neuts Hyposegmented Neuts Hypogranular Neuts Smudge Cells Toxic Granulation Toxic Vacuolation Dohle Bodies Pelger-Huet Anomaly Omar Rods Platelet Estimate Clumped Platelets Plt Clumps, EDTA Large Platelets Giant Platelets Platelet Satelliting Plt Morphology Comment RBC Morphology Dimorphic RBCs Polychromasia Hypochromasia Poikilocytosis Anisocytosis Microcytosis Macrocytosis Spherocytes Pappenheimer Bodies Sickle Cells Target Cells Tear Drop Cells Ovalocytes Helmet Cells Deshpande-Cherokee Bodies Caliente Rings Daisy Cells Bite Cells Crenated Cell Elliptocytes Acanthocytes (Spur) Rouleaux Hemoglobin C Crystals Schistocytes Malaria parasites Bentley Bodies Hem Pathologist Commnt Sodium Potassium Chloride Carbon Dioxide Anion Gap BUN Creatinine Estimated GFR BUN/Creatinine Ratio Glucose Calcium Magnesium Phenytoin 1.1 L - Differential Diagnosis seizures Critical care attestation.: If time is entered above; I have spent that time in minutes in the direct care of this critically ill patient, excluding procedure time. ED Disposition Clinical Impression: Seizure, Subtherapeutic serum dilantin level Disposition: DC-01 TO HOME OR SELFCARE Is pt being admited?: No Does the pt Need Aspirin: No Condition: Stable Instructions: Epilepsy (ED) Additional Instructions: Return to the emergency department immediately should you develop worsening symptoms, fever, inability to tolerate food or liquid or any other concerns. Prescriptions: Ibuprofen [Motrin 800 MG tab] 800 mg PO Q8HR PRN #20 tablet PRN Reason: Pain levETIRAcetam [Keppra TAB] 750 mg PO BID #60 tablet Phenytoin Sodium Extended 300 mg PO QHS #90 capsule Referrals: MIKE LANGLEY MD [Primary Care Provider] - 3-5 Days CHRISTIE JENNINGS MD [Staff Physician] - 3-5 Days Time of Disposition: 12:45
[2017-06-25 07:38] LABS: BUN/Creatinine Ratio 14; Blood Urea Nitrogen 13 mg/dL (7-17); Calcium 9.3 mg/dL (8.4-10.2); Hemolysis Index 0
[2017-06-25 11:01] LABS: Basophils % (Manual) 0 % (0.0-1.8); Eosinophils % (Manual) 0 % (0.0-4.3); RBC Morphology Normal; Total Cells Counted 100
[2017-06-25 12:28] VITALS: BP 131/78
[2017-06-25] MEDS ORDERED: CEREBYX 1,000 MG.PE in NACL 0.9% 100 ML IV ONE (12:42)
== END 2017-06-25 14:16 | disposition home or self-care (01) ==
LOC: ED 20:54
DX: R56.9 Unspecified convulsions (principal); R89.2 Abnormal level of other drugs, medicaments and biological substances in specimens from other organs, systems and tissues; K21.9 Gastro-esophageal reflux disease without esophagitis; M19.90 Unspecified osteoarthritis, unspecified site; I10 Essential (primary) hypertension; D64.9 Anemia, unspecified; Z88.8 Allergy status to other drugs, medicaments and biological substances
CPT/HCPCS: 36415; 80048; 80185; 83735; 85007; 85025; 96365; 96375; 99284; J1200; J1953; Q2009

== ENCOUNTER 2017-11-18 07:38 | Emergency (ER) | payer MEDICARE ==
[2017-11-18 09:14] VITALS: BP 162/93
[2017-11-18] MEDS ORDERED: KEPPRA 1,000 MG/NS 0.75% 100ML 1,000 MG/100 ML BAG IV ONE (09:45)
--- NOTE | 2017-11-18 09:47 | Emergency Department Report ---
Blank Doc - Documentation Documentation: Patient is a 52-year-old [place] female past medical history of seizures who states that she's been noncompliant with her meds over the last several weeks. Patient's had numerous seizures last seizure was this morning. Patient is denying any fevers no stiffness headache nausea vomiting diarrhea chest pain or shortness of breath. Patient be moved to the main area for seizure precautions labs and loading of her Keppra and Dilantin. Patient has a port that will need accessed.
[2017-11-18] MEDS ORDERED: DILANTIN 1,000 MG in NACL 0.9% 250ML 250 ML IV NR (10:00)
[2017-11-18] MEDS ORDERED: BENADRYL IV ONE (10:21)
[2017-11-18] MEDS ORDERED: BENADRYL ONE (10:33)
[2017-11-18 11:30] LABS: Alanine Aminotransferase 12 units/L (7-56); Albumin 4.3 g/dL (3.9-5); BUN/Creatinine Ratio 18; Blood Urea Nitrogen 16 mg/dL (7-17); Calcium 9.4 mg/dL (8.4-10.2); Hemolysis Index 5
[2017-11-18] MEDS ORDERED: NORCO 5/325 PO ONE (11:39)
[2017-11-18] MEDS ORDERED: DILANTIN 1,000 MG in NACL 0.9% 250ML 250 ML IV ONE (11:42)
--- NOTE | 2017-11-18 12:33 | Emergency Department Report ---
ED Seizure HPI - General Chief Complaint: Seizure Stated Complaint: HEADACHE, DIZZINESS Time Seen by Provider: 11/18/17 09:42 Source: patient Mode of arrival: Ambulatory Limitations: No Limitations - History of Present Illness Initial Comments: Patient is a 52-year-old [place] female past medical history of seizures who states that she's been noncompliant with her meds over the last several weeks. Patient's had numerous seizures last seizure was this morning. Patient is denying any fevers no stiffness headache nausea vomiting diarrhea chest pain or shortness of breath. Patient be moved to the main area for seizure precautions labs and loading of her Keppra and Dilantin. Patient has a port that will need accessed. MD Complaint: seizure Onset/Timin -: hour(s) Duration of Episode: 10 -: second(s) Witnessed:: No Trauma: No Seizure History: known seizure disorder Place: home Possible Precipitating Event: stress Associated Symptoms: denies other symptoms Treatments Prior to Arrival: none - Related Data Home Medications Medication Instructions Recorded Confirmed Last Taken Zolpidem [Ambien] 5 mg PO HS 10/13/13 06/01/16 10/20/13 5mg Celecoxib [celeBREX] 200 mg PO DAILY 10/14/13 06/01/16 10/13/13 Dexlansoprazole [Dexilant] 60 mg PO DAILY 10/14/13 06/01/16 10/21/13 60mg Estrogens, Conjugated [Premarin] 1.25 mg PO DAILY 10/14/13 06/01/16 10/21/13 1.25mg Furosemide 40 mg PO DAILY 10/14/13 06/01/16 10/21/13 40mg Metoprolol Tartrate 25 mg PO DAILY 10/14/13 06/01/16 10/21/13 25mg Paroxetine HCl [PARoxetine] 40 mg PO DAILY 10/14/13 06/01/16 10/21/13 40mg Previous Rx's Medication Instructions Recorded Last Taken Type Furosemide [Lasix TAB] 40 mg PO QDAY #30 tablet 06/01/16 Unknown Rx Metoprolol [Lopressor TAB] 25 mg PO DAILY #30 tablet 06/01/16 Unknown Rx Potassium Chloride [K-Dur] 10 meq PO DAILY #30 06/01/16 10/21/13 Rx 10meq Cyclobenzaprine HCl [Flexeril 5 MG 5 mg PO Q8HR PRN #10 tab 06/18/16 Unknown Rx TAB] Ibuprofen [Motrin 800 MG tab] 800 mg PO Q8HR PRN #20 tablet 07/16/16 Unknown Rx traMADol [Ultram] 50 mg PO Q6HR PRN #14 tablet 07/16/16 Unknown Rx LORazepam [Ativan] 1 mg PO TID #60 tablet 11/02/16 Unknown Rx Phenytoin [Dilantin] 100 mg PO Q8HR #90 capsule 11/02/16 Unknown Rx Ibuprofen [Motrin 800 MG tab] 800 mg PO Q8HR PRN #20 tablet 06/25/17 Unknown Rx Phenytoin Sodium Extended 300 mg PO QHS #90 capsule 06/25/17 Unknown Rx levETIRAcetam [Keppra TAB] 750 mg PO BID #60 tablet 06/25/17 Unknown Rx Acetaminophen/Codeine [Tylenol 1 tab PO Q6H PRN #5 tab 11/18/17 Unknown Rx /Codeine # 3 tab] Allergies Allergy/AdvReac Type Severity Reaction Status Date / Time hydromorphone HCl AdvReac Itching Verified 06/24/17 21:08 [From Dilaudid] metoclopramide HCl AdvReac Seizure Verified 06/24/17 21:08 [From Reglan] tiagabine HCl [From Gabitril] AdvReac Seizure Verified 06/24/17 21:08 I V DYE AdvReac Itching Uncoded 11/02/16 16:30 ED Review of Systems ROS: Stated complaint: HEADACHE, DIZZINESS Other details as noted in HPI Constitutional: denies: chills, fever Eyes: denies: eye pain, eye discharge, vision change ENT: denies: ear pain, throat pain Respiratory: denies: cough, shortness of breath, wheezing Cardiovascular: denies: chest pain, palpitations Endocrine: no symptoms reported Gastrointestinal: denies: abdominal pain, nausea, diarrhea Genitourinary: denies: urgency, dysuria, discharge Musculoskeletal: denies: back pain, joint swelling, arthralgia Skin: denies: rash, lesions Neurological: other (siezure ). denies: headache, weakness, numbness, paresthesias, confusion, abnormal gait, vertigo Psychiatric: denies: anxiety, depression Hematological/Lymphatic: denies: easy bleeding, easy bruising ED Past Medical Hx - Past Medical History Hx Hypertension: Yes Hx GERD: Yes Hx Arthritis: Yes (back and hip and bilat knees) Hx Seizures: Yes Additional medical history: ANEMIA - Surgical History Hx Pacemaker: No Hx Cholecystectomy: Yes Additional Surgical History: hysterectomy. SAM FUNDOPLICATION X 3. 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 ERCP. BACK SURGERY. PORT RIGHT CHEST - Social History Smoking Status: Never Smoker Substance Use Type: Alcohol - Medications Home Medications: Home Medications Medication Instructions Recorded Confirmed Last Taken Type Zolpidem [Ambien] 5 mg PO HS 10/13/13 06/01/16 10/20/13 History 5mg Celecoxib [celeBREX] 200 mg PO DAILY 10/14/13 06/01/16 10/13/13 History Dexlansoprazole [Dexilant] 60 mg PO DAILY 10/14/13 06/01/16 10/21/13 History 60mg Estrogens, Conjugated [Premarin] 1.25 mg PO DAILY 10/14/13 06/01/16 10/21/13 History 1.25mg Furosemide 40 mg PO DAILY 10/14/13 06/01/16 10/21/13 History 40mg Metoprolol Tartrate 25 mg PO DAILY 10/14/13 06/01/16 10/21/13 History 25mg Paroxetine HCl [PARoxetine] 40 mg PO DAILY 10/14/13 06/01/16 10/21/13 History 40mg Furosemide [Lasix TAB] 40 mg PO QDAY #30 tablet 06/01/16 Unknown Rx Metoprolol [Lopressor TAB] 25 mg PO DAILY #30 tablet 06/01/16 Unknown Rx Potassium Chloride [K-Dur] 10 meq PO DAILY #30 06/01/16 06/01/16 10/21/13 Rx 10meq Cyclobenzaprine HCl [Flexeril 5 MG 5 mg PO Q8HR PRN #10 tab 06/18/16 Unknown Rx TAB] Ibuprofen [Motrin 800 MG tab] 800 mg PO Q8HR PRN #20 tablet 07/16/16 Unknown Rx traMADol [Ultram] 50 mg PO Q6HR PRN #14 tablet 07/16/16 Unknown Rx LORazepam [Ativan] 1 mg PO TID #60 tablet 11/02/16 Unknown Rx Phenytoin [Dilantin] 100 mg PO Q8HR #90 capsule 11/02/16 Unknown Rx Ibuprofen [Motrin 800 MG tab] 800 mg PO Q8HR PRN #20 tablet 06/25/17 Unknown Rx Phenytoin Sodium Extended 300 mg PO QHS #90 capsule 06/25/17 Unknown Rx levETIRAcetam [Keppra TAB] 750 mg PO BID #60 tablet 06/25/17 Unknown Rx Acetaminophen/Codeine [Tylenol 1 tab PO Q6H PRN #5 tab 11/18/17 Unknown Rx /Codeine # 3 tab] ED Physical Exam - General Limitations: No Limitations General appearance: alert, in no apparent distress - Head Head exam: Present: atraumatic, normocephalic - Eye Eye exam: Present: normal appearance, PERRL, EOMI Pupils: Present: normal accommodation - ENT ENT exam: Present: normal orophraynx, mucous membranes moist, TM's normal bilaterally, normal external ear exam - Neck Neck exam: Present: normal inspection, full ROM. Absent: tenderness, lymphadenopathy, thyromegaly - Respiratory Respiratory exam: Present: normal lung sounds bilaterally. Absent: respiratory distress, wheezes, stridor - Cardiovascular Cardiovascular Exam: Present: regular rate, normal rhythm, normal heart sounds. Absent: systolic murmur, diastolic murmur, rubs, gallop - GI/Abdominal GI/Abdominal exam: Present: soft, normal bowel sounds - Rectal Rectal exam: Present: deferred - Extremities Exam Extremities exam: Present: normal inspection - Back Exam Back exam: Present: normal inspection. Absent: tenderness, CVA tenderness (R), CVA tenderness (L), muscle spasm, paraspinal tenderness, vertebral tenderness - Neurological Exam Neurological exam: Present: alert, oriented X3, CN II-XII intact, normal gait, reflexes normal. Absent: motor sensory deficit - Expanded Neurological Exam Expanded Neurological exam: Absent: ataxia, tremor Patient oriented to: Present: person, place, time Speech: Present: fluid speech Cranial nerves: EOM's Intact: Normal, Gag Reflex: Normal, Tongue Deviation: Normal, Nystagmus: Normal, Facial Sensation: Normal Cerebellar function: Finger to Nose: Normal, Heel to [place]: Normal, Romberg: Normal Upper motor neuron: Edmund Neglect: Normal, Pronator Drift: Normal, Babinski Sign : Normal, Sensory Extinction: Normal Sensory exam: Upper Extremity Light Touch: Normal, Upper Extremity Pin Prick: Normal, Upper Extremity Temperature: Normal, UE 2 Point Discrimination: Normal, Lower Extremity Light Touch: Normal, Lower Extremity Pin Prick: Normal, Lower Extremity Temperature: Normal, LE 2 Point Discrimination: Normal Motor strength exam: RUE: 5, LUE: 5, RLE: 5, LLE: 5 DTR: bicep (R): 2+, bicep (L): 2+, tricep (R): 2+, tricep (L): 2+, knee (R): 2+ , knee (L): 2+, ankle (R): 2+, ankle (L): 2+ Best Eye Response (Clarkson): (4) open spontaneously Best Motor Response (José Miguel): (6) obeys commands Best Verbal Response (Clarkson): (5) oriented José Miguel Total: 15 - Psychiatric Psychiatric exam: Present: normal affect, normal mood - Skin Skin exam: Present: warm, dry, intact, normal color. Absent: rash ED Course Vital Signs 11/18/17 11/18/17 11/18/17 09:05 11:05 11:56 Temperature 98.2 F Pulse Rate 93 H Respiratory 18 18 Rate Blood Pressure 162/93 O2 Sat by Pulse 99 Oximetry ED Medical Decision Making - Lab Data Result diagrams: 11/18/17 10:50 Laboratory Tests 11/18/17 11/18/17 10:50 10:50 Sodium 144 Potassium 3.5 L Chloride 104.3 Carbon Dioxide 27 Anion Gap 16 BUN 16 Creatinine 0.9 Estimated GFR > 60 BUN/Creatinine Ratio 18 Glucose 98 Calcium 9.4 Magnesium 2.00 Total Bilirubin 0.30 AST 18 ALT 12 Alkaline Phosphatase 67 Total Protein 7.2 Albumin 4.3 Albumin/Globulin Ratio 1.5 - Medical Decision Making Current exam patient is an O 3 no dizziness no headache no numbness no paresthesia patient denies oral is no chest pain or shortness of breath patient is a and O 3 patient is ambulatory gait is steady . There are exam normal cranial nerve II through XII grossly intact patient states did not urinate or defecate during seizure seizure for approximately 10 seconds patient ambulatory and ED patient states that she has Dilantin and Keppra in her position home higher has not been taking probably due to stress at home and [id number] today or expecting a baby but concerning aborting the patient lives with them concern of losing the baby patient denies SI or HI this time patient counseled on stress in relation to his seizure threshold patient with Dilantin and Marcus today plan follow with PCP Dr. shantel yoon in 2-3 days follow with neurology Dr. Barnett in 2-3 days take all medications as prescribed and return to ED if symptoms worsen patient verbalized understanding and agreement with discharge plan for DC'd home in stable condition at this time Critical care attestation.: If time is entered above; I have spent that time in minutes in the direct care of this critically ill patient, excluding procedure time. ED Disposition Clinical Impression: Seizure Disposition: DC-01 TO HOME OR SELFCARE Is pt being admited?: No Does the pt Need Aspirin: No Condition: Good Instructions: Recurrent Seizures Adult (ED), Women and Epilepsy (ED) Prescriptions: Acetaminophen/Codeine [Tylenol /Codeine # 3 tab] 1 tab PO Q6H PRN #5 tab PRN Reason: pain Referrals: MIKE LANGLEY MD [Primary Care Provider] - 3-5 Days CAL SANTILLAN MD [Referring] - 3-5 Days Forms: Work/School Release Form(ED) Time of Disposition: 12:36
== END 2017-11-18 13:38 | disposition home or self-care (01) ==
LOC: ED 07:38
DX: R56.9 Unspecified convulsions (principal); I10 Essential (primary) hypertension; K21.9 Gastro-esophageal reflux disease without esophagitis; D64.9 Anemia, unspecified; M19.90 Unspecified osteoarthritis, unspecified site; Z90.710 Acquired absence of both cervix and uterus; Z88.8 Allergy status to other drugs, medicaments and biological substances; Z91.041 Radiographic dye allergy status
CPT/HCPCS: 36415; 80048; 80053; 83735; 96365; 96366; 96375; 99284; J1165; J1200; J1953; J7050

== ENCOUNTER 2018-01-28 17:32 | Inpatient (IN) | payer MEDICARE ==
[2018-01-28] MEDS ORDERED: NACL 0.9% 1000 ML 1,000 ML IV ONE (20:30)
[2018-01-28] MEDS ORDERED: KEPPRA 1,000 MG/NS 0.75% 100ML 1,000 MG/100 ML BAG IV ONE (20:31)
[2018-01-28] MEDS ORDERED: DILANTIN 1,000 MG in NACL 0.9% 250ML 250 ML IV ONE (20:32)
[2018-01-28] MEDS ORDERED: BENADRYL IV ONE (20:32)
--- NOTE | 2018-01-28 20:35 | Emergency Department Report ---
HPI - General Chief Complaint: Seizure Time Seen by Provider: 01/28/18 19:42 - HPI HPI: 53-year-old AA female presents to the emergency Department from home by EMS with complaint of a witnessed seizure. She says that her [id number] witnessed the seizure and called the ambulance. She says that she's been having a few seizures over the past few days. She is on phenytoin 100 mg 3 times daily, Keppra 750 mg twice daily and Xanax 1 mg 3 times a day but does not take all these medications compliantly in their entirety. She does have a seizure history and says that she gets focal seizures. She was here in the past and referred to a local neurologist, whose name she cannot currently remember, but she says she has an appointment coming up next week. ED Past Medical Hx - Past Medical History Hx Hypertension: Yes Hx GERD: Yes Hx Arthritis: Yes (back and hip and bilat knees) Hx Seizures: Yes Additional medical history: ANEMIA - Surgical History Hx Pacemaker: No Hx Cholecystectomy: Yes Additional Surgical History: hysterectomy. SAM FUNDOPLICATION X 3. 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 ERCP. BACK SURGERY. PORT RIGHT CHEST - Social History Smoking Status: Never Smoker Substance Use Type: None - Medications Home Medications: Home Medications Medication Instructions Recorded Confirmed Last Taken Type Zolpidem [Ambien] 5 mg PO HS 10/13/13 06/01/16 10/20/13 History 5mg Celecoxib [celeBREX] 200 mg PO DAILY 10/14/13 06/01/16 10/13/13 History Dexlansoprazole [Dexilant] 60 mg PO DAILY 10/14/13 06/01/16 10/21/13 History 60mg Estrogens, Conjugated (Nf) 1.25 mg PO DAILY 10/14/13 06/01/16 10/21/13 History [Premarin (Nf)] 1.25mg Furosemide 40 mg PO DAILY 10/14/13 06/01/16 10/21/13 History 40mg Metoprolol Tartrate 25 mg PO DAILY 10/14/13 06/01/16 10/21/13 History 25mg PARoxetine HCl [PARoxetine] 40 mg PO DAILY 10/14/13 06/01/16 10/21/13 History 40mg Furosemide [Lasix TAB] 40 mg PO QDAY #30 tablet 06/01/16 Unknown Rx Metoprolol [Lopressor TAB] 25 mg PO DAILY #30 tablet 06/01/16 Unknown Rx Potassium Chloride [K-Dur] 10 meq PO DAILY #30 06/01/16 06/01/16 10/21/13 Rx 10meq Cyclobenzaprine HCl [Flexeril 5 MG 5 mg PO Q8HR PRN #10 tab 06/18/16 Unknown Rx TAB] Ibuprofen [Motrin 800 MG tab] 800 mg PO Q8HR PRN #20 tablet 07/16/16 Unknown Rx traMADol [Ultram] 50 mg PO Q6HR PRN #14 tablet 07/16/16 Unknown Rx LORazepam [Ativan] 1 mg PO TID #60 tablet 11/02/16 Unknown Rx Phenytoin [Dilantin] 100 mg PO Q8HR #90 capsule 11/02/16 Unknown Rx Ibuprofen [Motrin 800 MG tab] 800 mg PO Q8HR PRN #20 tablet 06/25/17 Unknown Rx Phenytoin Sodium Extended 300 mg PO QHS #90 capsule 06/25/17 Unknown Rx levETIRAcetam [Keppra TAB] 750 mg PO BID #60 tablet 06/25/17 Unknown Rx Acetaminophen/Codeine [Tylenol 1 tab PO Q6H PRN #5 tab 11/18/17 Unknown Rx /Codeine # 3 tab] ED Review of Systems ROS: Stated complaint: SEIZURES/HEADACHE Other details as noted in HPI Comment: All other systems reviewed and negative Constitutional: denies: chills, fever Eyes: denies: eye pain, eye discharge, vision change ENT: denies: ear pain, throat pain Respiratory: denies: cough, shortness of breath, wheezing Cardiovascular: denies: chest pain, palpitations Gastrointestinal: denies: abdominal pain, nausea, diarrhea Genitourinary: denies: urgency, dysuria, discharge Musculoskeletal: denies: back pain, joint swelling, arthralgia Skin: denies: rash, lesions Neurological: headache, other (seizure). denies: numbness Physical Exam - Physical Exam Vital Signs: Vital Signs 01/28/18 01/28/18 17:39 19:46 Temperature 98.6 F Pulse Rate 75 60 Respiratory 16 10 L Rate Blood Pressure 159/78 O2 Sat by Pulse 100 100 Oximetry Physical Exam: GENERAL: The patient is well-developed well-nourished. HENT: Normocephalic. Atraumatic. Patient has moist mucous membranes. EYES: Extraocular motions are intact. Pupils equal reactive to light bilaterally. There is some fatigable horizontal nystagmus. The patient has left eye twitching. NECK: Supple. Trachea is midline. CHEST/LUNGS: Clear to auscultation. There is no respiratory distress noted. HEART/CARDIOVASCULAR: Regular. There is no tachycardia. There is no murmur. ABDOMEN: Abdomen is soft, nontender. Patient has normal bowel sounds. There is no abdominal distention. SKIN: Skin is warm and dry. NEURO: The patient is awake, alert, and oriented. The patient is cooperative. No sensory deficits. Patient has mild bilateral upper extremity distal tremor. The patient has normal speech. Cranial nerves II through XII grossly intact. MUSCULOSKELETAL: There is no tenderness or deformity. There is no limitation range of motion. There is no evidence of acute injury. ED Course Vital Signs 01/28/18 01/28/18 17:39 19:46 Temperature 98.6 F Pulse Rate 75 60 Respiratory 16 10 L Rate Blood Pressure 159/78 O2 Sat by Pulse 100 100 Oximetry ED Medical Decision Making - Lab Data Result diagrams: 01/28/18 20:47 01/28/18 20:47 - Radiology Data Radiology results: report reviewed EXAM: CT HEAD/BRAIN WO CON HISTORY: seizures TECHNIQUE: Noncontrast CT axial images of the brain. PRIORS: None. FINDINGS: No parenchymal mass, mass effect, hemorrhage, midline shift or hydrocephalus. No evidence of acute cortical infarct. No abnormal, extra-axial fluid or air collection. Osseous calvarium grossly intact. IMPRESSION: 1. No acute intracranial findings. Transcribed By: [facility] Dictated By: CHRISTIAN ROMERO MD Electronically Authenticated By: CHRISTIAN ROMERO MD Signed Date/Time: 01/28/18 2481 - Medical Decision Making This patient came in with the complaint of a witnessed seizure and then allegedly one upon arrival. The patient also says that she has had at least one seizure each day over the past few days. She admits to some relative noncompliance to her medication and she will take the meds each day but not necessarily multiple times as prescribed. She has a distal upper extremity tremor and some facial twitching but otherwise is awake and alert. Since the patient has had multiple seizures in the past 2 days, a CT scan of the head without contrast was done that did not show any acute intracranial processes. Patient had some abnormal behavior while she was in the emergency department which may have been another seizure, but otherwise the patient was found in what appeared to be a postictal state with some of her IV fluids but attached and dripping onto the floor. Patient was loaded with Keppra and phenytoin. She was found to be slightly subtherapeutic with the phenytoin. The patient does not yet have close follow-up with neurology and has multiple recent seizures and is subtherapeutic for the antiepileptic medications, the patient will be admitted to the hospital for further evaluation and treatment and was accepted for admission by the hospitalist, Dr. Michaels. - Differential Diagnosis seizures, pseudoseizures, TIA, electrolyte abnormalities Critical Care Time: No Critical care attestation.: If time is entered above; I have spent that time in minutes in the direct care of this critically ill patient, excluding procedure time. ED Disposition Clinical Impression: Seizure, Subtherapeutic phenytoin level Hypertension Qualifiers: Hypertension type: essential hypertension Qualified Code(s): I10 - Essential ( primary) hypertension Disposition: DC-01 TO HOME OR SELFCARE Is pt being admited?: No Condition: Fair Time of Disposition: 02:24
[2018-01-28] MEDS ORDERED: NORCO 5/325 PO ONE (20:53)
[2018-01-28 21:04] LABS: Basophils # (Auto) 0.1 K/mm3 (0.0-0.1); Eosinophils % (Auto) 0.9 % (0.0-4.3); Hematocrit 31.6 % (30.3-42.9); Hemoglobin 10.5 gm/dl (10.1-14.3); Lymphocytes # (Auto) 2.4 K/mm3 (1.2-5.4); Lymphocytes % (Auto) 44.9 % (13.4-35.0); Mean Corpuscular HGB Conc 33 % (30-34); Mean Corpuscular Hemoglobin 32 pg (28-32); Mean Corpuscular Volume 97 fl (79-97); Monocytes # (Auto) 0.3 K/mm3 (0.0-0.8); Monocytes % (Auto) 4.8 % (0.0-7.3); Platelet Count 281 K/mm3 (140-440); Red Blood Count 3.27 M/mm3 (3.65-5.03); Red Cell Distribution Width 13.4 % (13.2-15.2)
[2018-01-28 21:25] LABS: Alanine Aminotransferase 16 units/L (7-56); Albumin 3.9 g/dL (3.9-5); BUN/Creatinine Ratio 13; Blood Urea Nitrogen 12 mg/dL (7-17); Hemolysis Index 0
[2018-01-28] MEDS ORDERED: ZOFRAN ONE (22:35)
[2018-01-28] MEDS ORDERED: ZOFRAN IV ONE (22:40)
--- NOTE | 2018-01-28 23:01 | Cat Scan Report ---
FINAL REPORT EXAM: CT HEAD/BRAIN WO CON HISTORY: seizures TECHNIQUE: Noncontrast CT axial images of the brain. PRIORS: None. FINDINGS: No parenchymal mass, mass effect, hemorrhage, midline shift or hydrocephalus. No evidence of acute cortical infarct. No abnormal, extra-axial fluid or air collection. Osseous calvarium grossly intact. IMPRESSION: 1. No acute intracranial findings.
[2018-01-29] MEDS ORDERED: SODIUM CHLORIDE FLUSH SYRINGE 10 ML IV PRN (00:11)
[2018-01-29] MEDS ORDERED: ZOFRAN IV PRN (00:11)
[2018-01-29] MEDS ORDERED: TYLENOL PO PRN (00:11)
--- NOTE | 2018-01-29 00:22 | History and Physical Report ---
History of Present Illness Date of examination: 01/29/18 History of present illness: 53-year-old male with a history of seizure, hypertension, GERD, osteoarthritis comes to emergency room with complaints of having seizures since last week. The patient is maintained on Keppra, Dilantin, she does not take her medicine as she is supposed to. Patient states the medications make her drowsy. States she had 2 seizures today Review of systems Constitutional: no weight loss, chills, fever Ears, eyes, nose, mouth and throat: no nasal congestion, no nasal discharge, no sinus pressure, no vision change, no red eye. Neck: No neck pain or rigidity. Cardiovascular: no chest pain, palpitations Respiratory: no cough, shortness of breath Gastrointestinal: no abdominal pain hematochezia Genitourinary : no frequency , no hematuria Musculoskeletal: no joint swelling or muscle ache Integumentary: no rash, no pruritis Neurological: no parathesias, no focal weakness Endocrine: no cold or heat intolerance, no polyuria or polydipsia Hematologic/Lymphatic: no easy bruising, no easy bleeding, no gland swelling Allergic/Immunologic: no urticaria, no angioedema. PAST MEDICAL HISTORY: seizure, hypertension, GERD, osteoarthritis PAST SURGICAL HISTORY: Hysterectomy, back surgery, Rekha fundoplication SOCIAL HISTORY: No alcohol, no drugs, tobacco FAMILY HISTORY: Hypertension Medications and Allergies Allergies Allergy/AdvReac Type Severity Reaction Status Date / Time hydromorphone HCl AdvReac Itching Verified 06/24/17 21:08 [From Dilaudid] metoclopramide HCl AdvReac Seizure Verified 06/24/17 21:08 [From Reglan] tiagabine HCl [From Gabitril] AdvReac Seizure Verified 06/24/17 21:08 I V DYE AdvReac Itching Uncoded 11/02/16 16:30 Home Medications Medication Instructions Recorded Confirmed Last Taken Type Zolpidem [Ambien] 5 mg PO HS 10/13/13 06/01/16 10/20/13 History 5mg Celecoxib [celeBREX] 200 mg PO DAILY 10/14/13 06/01/16 10/13/13 History Dexlansoprazole [Dexilant] 60 mg PO DAILY 10/14/13 06/01/16 10/21/13 History 60mg Estrogens, Conjugated (Nf) 1.25 mg PO DAILY 10/14/13 06/01/16 10/21/13 History [Premarin (Nf)] 1.25mg Furosemide 40 mg PO DAILY 10/14/13 06/01/16 10/21/13 History 40mg Metoprolol Tartrate 25 mg PO DAILY 10/14/13 06/01/16 10/21/13 History 25mg PARoxetine HCl [PARoxetine] 40 mg PO DAILY 10/14/13 06/01/16 10/21/13 History 40mg Furosemide [Lasix TAB] 40 mg PO QDAY #30 tablet 06/01/16 Unknown Rx Metoprolol [Lopressor TAB] 25 mg PO DAILY #30 tablet 06/01/16 Unknown Rx Potassium Chloride [K-Dur] 10 meq PO DAILY #30 06/01/16 06/01/16 10/21/13 Rx 10meq Cyclobenzaprine HCl [Flexeril 5 MG 5 mg PO Q8HR PRN #10 tab 06/18/16 Unknown Rx TAB] Ibuprofen [Motrin 800 MG tab] 800 mg PO Q8HR PRN #20 tablet 07/16/16 Unknown Rx traMADol [Ultram] 50 mg PO Q6HR PRN #14 tablet 07/16/16 Unknown Rx LORazepam [Ativan] 1 mg PO TID #60 tablet 11/02/16 Unknown Rx Phenytoin [Dilantin] 100 mg PO Q8HR #90 capsule 11/02/16 Unknown Rx Ibuprofen [Motrin 800 MG tab] 800 mg PO Q8HR PRN #20 tablet 06/25/17 Unknown Rx Phenytoin Sodium Extended 300 mg PO QHS #90 capsule 06/25/17 Unknown Rx levETIRAcetam [Keppra TAB] 750 mg PO BID #60 tablet 06/25/17 Unknown Rx Acetaminophen/Codeine [Tylenol 1 tab PO Q6H PRN #5 tab 11/18/17 Unknown Rx /Codeine # 3 tab] Active Meds: Active Medications Acetaminophen (Tylenol) 650 mg PO Q4H PRN PRN Reason: Pain MILD(1-3)/Fever >100.5/ADAME Enoxaparin Sodium (Lovenox) 30 mg SUB-Q QDAY AMY Ondansetron HCl (Zofran) 4 mg IV Q4H PRN PRN Reason: Nausea And Vomiting Sodium Chloride (Sodium Chloride Flush Syringe 10 Ml) 10 ml IV BID AMY Sodium Chloride (Sodium Chloride Flush Syringe 10 Ml) 10 ml IV PRN PRN PRN Reason: LINE FLUSH Exam - Physical Exam Narrative exam: Gen. appearance: Patient lying in bed, no apparent distress HEENT: Normocephalic, atraumatic, pupils equally round and reactive to light, extraocular movement intact, and no sclericterus,. No JVD or thyromegaly or nodule,neck supple, no carotid bruit ,mucous membranes moist, no exudate or erythema Heart: S1, S2, regular rate and rhythm Lungs: Clear bilaterally, breathing comfortable Abdomen: Positive bowel sounds, non-tender, nondistended, no organomegaly Extremity:no edema cyanosis, clubbing Skin: no rash, dry, warm Neuro: Oriented 3, cranial nerves II-12 intact, speech is fluent, motor and sensory intact - Constitutional Vitals: Temp Pulse Resp BP Pulse Ox 98.6 F 65 15 149/75 97 01/28/18 17:39 01/29/18 00:01 01/29/18 00:01 01/29/18 00:01 01/28/18 21:45 Results - Labs CBC & Chem 7: 01/28/18 20:47 01/28/18 20:47 Labs: Abnormal lab results 01/28/18 01/28/18 Range/Units 20:47 20:47 RBC 3.27 L (3.65-5.03) M/mm3 Lymph % (Auto) 44.9 H (13.4-35.0) % Phenytoin 0.8 L (10.0-20.0) ug/mL - Imaging and Cardiology CT Scan - head: report reviewed Assessment and Plan Assessment Acute on chronic seizure secondary to noncompliance Hypertension GERD osteoarthritis Plan Admit to medicine restart medication, IV Ativan as needed for breakthrough seizures Consult neurology DVT prophylaxis
[2018-01-29] MEDS: DILANTIN PO SCH ×3 (06:54→21:16)
[2018-01-29] MEDS: ATIVAN PO SCH ×3 (08:10→21:15)
--- NOTE | 2018-01-29 08:47 | Discharge Summary ---
Providers - Providers Date of Admission: 01/29/18 00:11 Date of discharge: 01/30/18 Attending physician: GERMAN MCKAY 01/29/18 00:11 Consult to Physician [CONS] Routine Comment: Consulting Provider: ANTONINA ARGUELLES Physician Instructions: Reason For Exam: luis Primary care physician: EDUCATION NURSE Hospitalization Reason for admission: fall Condition: Fair Hospital course: 58-year-old female presents to the emergency department from [facility] for a general medical evaluation. The patient is nonverbal and the staff member from [facility] says that is how the patient has been since she has been at their facility. Since the patient is nonverbal she is a poor historian. She has been seen here one time in the past when she was also at [facility] at that time, back in August of this year, and she was found to have some type of bipolar disorder and acute psychotic event at that time. It also appears the patient has history of diabetes. The patient was brought in because she was found to have some "knots" to the forehead and some areas of bruising. They think that she had falls prior to coming in to the facility but still wanted her to get checked out. The patient underwent extensive radiographic evaluation with pelvic and chest x-rays that were found to be negative. Cervical spine and head CT also negative. The patient also was noted to have hypokalemia which was repleted. Patient will be transferred back to room was. Dedicated discharge 31 minutes. Disposition: DC/TX-70 ANOTHER TYPE THCARE Time spent for discharge: 31 - Discharge Diagnoses (1) Bipolar 1 disorder Status: Acute (2) Hypertension Status: Acute Qualifiers: Hypertension type: essential hypertension Qualified Code(s): I10 - Essential (primary) hypertension Core Measure Documentation - Palliative Care Palliative Care/ Comfort Measures: Not Applicable - Core Measures Any of the following diagnoses?: none Exam - Constitutional Vitals: Temp Pulse Resp BP Pulse Ox 98.1 F 63 16 123/76 91 01/29/18 06:22 01/29/18 06:22 01/29/18 06:22 01/29/18 06:22 01/29/18 06:22 General appearance: Present: no acute distress, well-nourished - EENT Eyes: Present: PERRL ENT: hearing intact, clear oral mucosa - Neck Neck: Present: supple, normal ROM - Respiratory Respiratory effort: normal Respiratory: bilateral: CTA - Cardiovascular Heart Sounds: Present: S1 & S2. Absent: rub, click - Extremities Extremities: pulses symmetrical, No edema Peripheral Pulses: within normal limits - Abdominal General gastrointestinal: Present: soft, non-tender, non-distended, normal bowel sounds Female genitourinary: Present: normal - Integumentary Integumentary: Present: clear, warm, dry - Musculoskeletal Musculoskeletal: gait normal, strength equal bilaterally - Psychiatric Psychiatric: appropriate mood/affect, intact judgment & insight - Neurologic Neurologic: CNII-XII intact, moves all extremities Plan Activity: no restrictions Weight Bearing Status: Full Weight Bearing Diet: regular Follow up with: PRIMARY CARE, [Primary Care Provider] - 7 Days
[2018-01-29] MEDS ORDERED: NON-FORMULARY (Levetiracetam [Keppra Tab] 750 MG) PO SCH (10:00)
[2018-01-29] MEDS ORDERED: NON-FORMULARY (Paroxetine Hcl [Paroxetine] 40 MG) PO SCH (10:00)
[2018-01-29] MEDS ORDERED: LOVENOX SUB-Q SCH (10:00)
[2018-01-29] MEDS ORDERED: NON-FORMULARY (Dexlansoprazole [Dexilant] 60 MG) PO SCH (10:00)
[2018-01-29] MEDS: PAXIL PO SCH (10:12)
[2018-01-29] MEDS: LOPRESSOR PO SCH (10:14)
[2018-01-29] MEDS: KEPPRA PO SCH ×2 (10:15→21:15)
[2018-01-29] MEDS: PROTONIX PO SCH (10:15)
[2018-01-29] MEDS: LASIX PO SCH (10:15)
[2018-01-29] MEDS: LOVENOX SUB-Q SCH (10:37)
--- NOTE | 2018-01-29 12:47 | Progress Note ---
Assessment and Plan Assessment and plan: Acute on chronic seizure secondary to noncompliance. Patient with no new seizure activity. If stable will likely discharge in a.m. Hypertension. Continue antihypertensive medications. GERD. Continue PPI osteoarthritis - Patient Problems (1) Bipolar 1 disorder Current Visit: Yes Status: Acute (2) Hypertension Current Visit: Yes Status: Acute Qualifiers: Hypertension type: essential hypertension Qualified Code(s): I10 - Essential (primary) hypertension History Interval history: No new seizure activity. Hospitalist Physical - Constitutional Vitals: Temp Pulse Resp BP Pulse Ox 98.1 F 63 16 132/85 99 01/29/18 06:22 01/29/18 06:22 01/29/18 06:22 01/29/18 10:14 01/29/18 10:24 General appearance: Present: no acute distress, well-nourished - EENT Eyes: Present: PERRL, EOM intact ENT: hearing intact, clear oral mucosa, dentition normal - Neck Neck: Present: supple, normal ROM - Respiratory Respiratory effort: normal Respiratory: bilateral: CTA - Cardiovascular Rhythm: regular Heart Sounds: Present: S1 & S2. Absent: gallop, rub - Extremities Extremities: no ischemia, No edema, Full ROM - Abdominal General gastrointestinal: soft, non-tender, non-distended, normal bowel sounds - Integumentary Integumentary: Present: clear, warm, dry - Neurologic Neurologic: CNII-XII intact, moves all extremities Results - Labs CBC & Chem 7: 01/28/18 20:47 01/28/18 20:47 Labs: Laboratory Last Values WBC 5.4 K/mm3 (4.5-11.0) 01/28/18 20:47 RBC 3.27 M/mm3 (3.65-5.03) L 01/28/18 20:47 Hgb 10.5 gm/dl (10.1-14.3) 01/28/18 20:47 Hct 31.6 % (30.3-42.9) 01/28/18 20:47 MCV 97 fl (79-97) 01/28/18 20:47 MCH 32 pg (28-32) 01/28/18 20:47 MCHC 33 % (30-34) 01/28/18 20:47 RDW 13.4 % (13.2-15.2) 01/28/18 20:47 Plt Count 281 K/mm3 (140-440) 01/28/18 20:47 Lymph % (Auto) 44.9 % (13.4-35.0) H 01/28/18 20:47 Butler % (Auto) 4.8 % (0.0-7.3) 01/28/18 20:47 Eos % (Auto) 0.9 % (0.0-4.3) 01/28/18 20:47 Baso % (Auto) 1.0 % (0.0-1.8) 01/28/18 20:47 Lymph # 2.4 K/mm3 (1.2-5.4) 01/28/18 20:47 Butler # 0.3 K/mm3 (0.0-0.8) 01/28/18 20:47 Eos # 0.0 K/mm3 (0.0-0.4) 01/28/18 20:47 Baso # 0.1 K/mm3 (0.0-0.1) 01/28/18 20:47 Seg Neutrophils % 48.4 % (40.0-70.0) 01/28/18 20:47 Seg Neutrophils # 2.6 K/mm3 (1.8-7.7) 01/28/18 20:47 Sodium 141 mmol/L (137-145) 01/28/18 20:47 Potassium 3.6 mmol/L (3.6-5.0) 01/28/18 20:47 Chloride 103.4 mmol/L (98-107) 01/28/18 20:47 Carbon Dioxide 27 mmol/L (22-30) 01/28/18 20:47 Anion Gap 14 mmol/L 01/28/18 20:47 BUN 12 mg/dL (7-17) 01/28/18 20:47 Creatinine 0.9 mg/dL (0.7-1.2) 01/28/18 20:47 Estimated GFR > 60 ml/min 01/28/18 20:47 BUN/Creatinine Ratio 13 % 01/28/18 20:47 Glucose 96 mg/dL (65-100) 01/28/18 20:47 Calcium 9.0 mg/dL (8.4-10.2) 01/28/18 20:47 Total Bilirubin 0.30 mg/dL (0.1-1.2) 01/28/18 20:47 AST 20 units/L (5-40) 01/28/18 20:47 ALT 16 units/L (7-56) 01/28/18 20:47 Alkaline Phosphatase 67 units/L (35-129) 01/28/18 20:47 Total Creatine Kinase 56 units/L (30-135) 01/28/18 20:47 Total Protein 6.8 g/dL (6.3-8.2) 01/28/18 20:47 Albumin 3.9 g/dL (3.9-5) 01/28/18 20:47 Albumin/Globulin Ratio 1.3 % 01/28/18 20:47 Phenytoin 0.8 ug/mL (10.0-20.0) L 01/28/18 20:47 Plasma/Serum Alcohol < 0.01 % (0-0.07) 01/28/18 20:47
[2018-01-29] MEDS: SODIUM CHLORIDE FLUSH SYRINGE 10 ML IV SCH ×2 (14:23→21:17)
--- NOTE | 2018-01-30 01:55 | Consultation ---
NEUROLOGICAL CONSULTATION REFERRING PHYSICIAN: Juan Pablo Lopez MD and Lisa Michaels MD REASON FOR CONSULTATION: Seizure. HISTORY OF PRESENT ILLNESS: Provided by the patient. She is a 53-year-old -[place] female, who apparently was brought by EMS from home because of her seizure witnessed by her [id number]. It was her who called the ambulance. Apparently, she has been having seizures over the last several days. She has been taking her medications, which consist of phenytoin 300 mg per day, Keppra 1500 mg per day, and Xanax 3 mg per day. However, she is not very compliant. The frequency of seizure depends upon whether she is taking her medication or not. She apparently has been hospitalized before. Upon the urging of her son, she has an appointment to see a neurologist this coming week . Her history; however, started way back in 2004 when she has been complaining of pain and she was seen by pain management physician. She was tried on Gabitril, which is an anticonvulsant. However, she said that this is what brought up her seizures. After that, she was having seizures. She did not see neurologist until about 3 years after when she developed seizures. The description of her seizure includes a warning sign of a feeling of warmth coming from her head all the way down her body. Then she will have the distortion and contraction of her body followed by shaking. Sometimes she lost consciousness; most of the time, she does not. She never bites her tongue, but she had episodes of urinary incontinence. Thereafter, she had been taking her medication, but again she was noncompliant. She was then brought in here because of this frequent seizure. PAST MEDICAL HISTORY: The patient has hypertension and gastroesophageal reflux with surgery, arthritis, seizures, history of anemia. She has no pacemaker. PAST SURGICAL HISTORY: Cholecystectomy, hysterectomy, has fundoplication x 3. 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 History of Port-A-Cath in the right chest before. SOCIAL HISTORY: The patient is not . She has children. She lives with her son right now. She used to be a hairstylist, but now disabled. She denies smoking, drinking alcoholic beverages or illegal drugs. FAMILY HISTORY: Positive for hypertension. ALLERGIES: HYDROMORPHONE with itching. PHYSICAL EXAMINATION: GENERAL: Revealed a well-developed, well-nourished female who is in no acute distress. VITAL SIGNS: Her blood pressure is 140/70, respirations 16 and regular, pulse 65, temperature 98.6, oximetry 97%. HEAD, EYES, EARS, NOSE, MOUTH and THROAT: Unremarkable. No intracranial or intraorbital bruit. NECK: Supple. No carotid bruit. HEART: Regular rate and rhythm. LUNGS: Sounds clear. ABDOMEN: Soft. EXTREMITIES: Appeared externally normal. NEUROLOGIC: The patient is awake, alert. Mental status. Normal. Speech sounded normal. Cranial nerve examination was normal. Motor examination, 5/5 strength in the upper and lower extremities. Sensory testing was normal. Coordination intact. Reflexes symmetrical on both sides. No pathological reflexes. The patient is ambulatory, this is normal. The patient mentioned that she has had MRI several years ago. She described the procedure, this was probably negative. CLINICAL IMPRESSION: This patient has epilepsy from the description. I do not know whether Gabitril was the precipitating factor, but this is original procedure. In any way, this patient appeared to have no evidence of organic disease. She is poorly compliant. PLAN: The patient to continue her current medication and I advised her that when she goes home, she has to be compliant and observe and make sure she takes her medication on a regular basis. She has to keep her appointment to the neurologist, he will see her next week. I advised her that her seizure will be controlled immediately. She has to be observed and she has to be followed by the neurologist and make decisions whether there are changes that has to be made or if she could not tolerate her medication, then discharge to be changed, but again this will have to be done by her neurologist. She asks about cannabis. I advised her that she should discuss this with the neurologist again. We should get an EEG and then she could be discharged home to be followed by neurologist. She promised to take her medication regularly and keep her appointment as to the neurologist set up by her son. Sixty minutes involved in the history and physical examination and more than 50% in the coordination of care and counseling. JOB# [id number] VALORIE/GIORGI
[2018-01-30] MEDS ORDERED: ULTRAM PO PRN (03:06)
[2018-01-30] MEDS: DILANTIN PO SCH ×2 (06:06→14:29)
[2018-01-30 06:44] LABS: Hematocrit 35.6 % (30.3-42.9); Hemoglobin 11.8 gm/dl (10.1-14.3); Mean Corpuscular HGB Conc 33 % (30-34); Mean Corpuscular Hemoglobin 32 pg (28-32); Mean Corpuscular Volume 96 fl (79-97); Platelet Count 300 K/mm3 (140-440); Red Cell Distribution Width 13.5 % (13.2-15.2)
[2018-01-30 07:01] LABS: Calcium 8.9 mg/dL (8.4-10.2)
[2018-01-30] MEDS: ATIVAN PO SCH ×2 (08:26→14:29)
[2018-01-30 08:33] LABS: Giant Platelets Rare; Platelet Estimate Consistent w Auto; Total Cells Counted 100
[2018-01-30 08:34] LABS: RBC Morphology Normal
--- NOTE | 2018-01-30 08:55 | Discharge Summary ---
Providers - Providers Date of Admission: 01/29/18 00:11 Date of discharge: 01/30/18 Attending physician: GERMAN MCKAY 01/29/18 00:11 Consult to Physician [CONS] Routine Comment: Consulting Provider: ANTONINA ARGUELLES Physician Instructions: Reason For Exam: luis Primary care physician: [employer] Hospitalization Reason for admission: sz, med noncompliance Condition: Fair Hospital course: 53-year-old male with a history of seizure, hypertension, GERD, osteoarthritis comes to emergency room with complaints of having seizures since last week. The patient is maintained on Keppra, Dilantin, she does not take her medicine as she is supposed to. Patient stated the medications make her drowsy. States she had 2 seizures prior to admission. Pt was resarted on her home regimen and had no sz activity during the hospitalization. CT scan was noted to be negative. Pt. is felt to have received maximal hospital benefit and will be discharged home. Pt. counseled on medical compliance. D/c time 32 min Disposition: DC/TX-70 ANOTHER TYPE HLTHCARE - Discharge Diagnoses (1) Bipolar 1 disorder Status: Acute (2) Hypertension Status: Acute Qualifiers: Hypertension type: essential hypertension Qualified Code(s): I10 - Essential (primary) hypertension Core Measure Documentation - Palliative Care Palliative Care/ Comfort Measures: Not Applicable - Core Measures Any of the following diagnoses?: none Exam - Constitutional Vitals: Temp Pulse Resp BP Pulse Ox 98.1 F 65 16 122/66 98 01/30/18 05:36 01/30/18 05:36 01/30/18 05:36 01/30/18 05:36 01/30/18 05:36 General appearance: Present: no acute distress, well-nourished - EENT Eyes: Present: PERRL ENT: hearing intact, clear oral mucosa - Neck Neck: Present: supple, normal ROM - Respiratory Respiratory effort: normal Respiratory: bilateral: CTA - Cardiovascular Heart Sounds: Present: S1 & S2. Absent: rub, click - Extremities Extremities: pulses symmetrical, No edema Peripheral Pulses: within normal limits - Abdominal General gastrointestinal: Present: soft, non-tender, non-distended, normal bowel sounds Female genitourinary: Present: normal - Integumentary Integumentary: Present: clear, warm, dry - Musculoskeletal Musculoskeletal: gait normal, strength equal bilaterally - Psychiatric Psychiatric: appropriate mood/affect, intact judgment & insight - Neurologic Neurologic: CNII-XII intact, moves all extremities Plan Activity: no restrictions Weight Bearing Status: Full Weight Bearing Diet: regular Follow up with: PRIMARY CARE, [Primary Care Provider] - 7 Days Prescriptions: levETIRAcetam [Keppra TAB] 750 mg PO BID #60 tablet LORazepam [Ativan] 1 mg PO TID #60 tablet Metoprolol [Lopressor TAB] 25 mg PO DAILY #30 tablet PARoxetine HCl [PARoxetine] 40 mg PO DAILY #30 tablet Phenytoin [Dilantin] 100 mg PO Q8HR #90 capsule
[2018-01-30] MEDS: PAXIL PO SCH (09:55)
[2018-01-30] MEDS: KEPPRA PO SCH (09:56)
[2018-01-30] MEDS: LOPRESSOR PO SCH (09:56)
[2018-01-30] MEDS: PROTONIX PO SCH (09:58)
[2018-01-30] MEDS: LOVENOX SUB-Q SCH (10:00)
[2018-01-30] MEDS: LASIX PO SCH (10:00)
[2018-01-30 15:35] VITALS: BP 121/75
[2018-01-30] MEDS ORDERED: TRIPLE ANTIBIOTIC TP ONE (17:25)
[2018-01-30] MEDS ORDERED: FLUSH HEPARIN IV ONE (17:35)
[2018-01-30] MEDS: SODIUM CHLORIDE FLUSH SYRINGE 10 ML IV SCH (19:56)
== END 2018-01-30 17:00 | disposition home or self-care (01) | DRG 101 ==
LOC: ED 17:32 → 3A 01-29 00:11
PROVIDERS: ADMIT Internal Medicine; ATTEND Hospitalist
DX: R56.9 Unspecified convulsions (principal); F31.9 Bipolar disorder, unspecified; Z88.8 Allergy status to other drugs, medicaments and biological substances; I10 Essential (primary) hypertension; K21.9 Gastro-esophageal reflux disease without esophagitis; Z82.49 Family history of ischemic heart disease and other diseases of the circulatory system; M19.90 Unspecified osteoarthritis, unspecified site; Z90.710 Acquired absence of both cervix and uterus; Z91.19 Patient's noncompliance with other medical treatment and regimen
CPT/HCPCS: 36415; 70450; 80048; 80053; 80185; 80320; 82550; 85007; 85025; 93005; 93010; 95819; A6250; G0480; J1165; J1200; J1642; J1650; J1953; J2405; J7030; J7050

== ENCOUNTER 2018-11-18 14:17 | Outpatient (CLI) | payer MEDICARE ==
--- NOTE | 2018-11-18 14:59 | Mammography Report ---
BILATERAL DIGITAL SCREENING MAMMOGRAM with CAD: 11/18/18 14:17:00 CLINICAL: Routine screening. COMPARISON:07/01/07 FINDINGS: The breasts are almost entirely fatty. No mass, architectural distortion or suspicious calcifications. IMPRESSION: No mammographic evidence of malignancy. BI-RADS CATEGORY: 1 - - Negative RECOMMENDATION: Routine mammographic screening in one year. COMMENT: Patient follow-up letters are generated by our [employer] application.
[2018-11-18] MEDS ORDERED: FLUSH HEPARIN IV ONE ×2 (15:36→16:00)
[2018-11-18 16:27] LABS: Basophils % (Auto) 0.9 % (0.0-1.8); Eosinophils % (Auto) 0.8 % (0.0-4.3); Hematocrit 31.2 % (30.3-42.9); Hemoglobin 10.7 gm/dl (10.1-14.3); Lymphocytes % (Auto) 40.6 % (13.4-35.0); Mean Corpuscular HGB Conc 34 % (30-34); Mean Corpuscular Volume 99 fl (79-97); Monocytes # (Auto) 0.2 K/mm3 (0.0-0.8); Monocytes % (Auto) 4.9 % (0.0-7.3); Platelet Count 253 K/mm3 (140-440); Red Blood Count 3.15 M/mm3 (3.65-5.03); Red Cell Distribution Width 12.5 % (13.2-15.2)
[2018-11-18 16:30] LABS: Alanine Aminotransferase 11 units/L (7-56); Albumin 3.8 g/dL (3.9-5); BUN/Creatinine Ratio 17; Blood Urea Nitrogen 17 mg/dL (7-17); Calcium 8.5 mg/dL (8.4-10.2); Hemolysis Index 8; LDL Cholesterol,Direct 98 mg/dL (50-130)
[2018-11-18 16:45] LABS: Chol/HDL Ratio 2.04 %; HDL Cholesterol 104 mg/dL (40-59)
[2018-11-22 12:37] LABS: Vitamin D, 25-OH, D2 27 ng/mL
== END 2018-11-18 14:18 | disposition home or self-care (01) ==
LOC: MAMMO 14:17
PROVIDERS: ATTEND Internal Medicine
DX: Z12.31 Encounter for screening mammogram for malignant neoplasm of breast (principal); E78.2 Mixed hyperlipidemia; I10 Essential (primary) hypertension; E55.9 Vitamin D deficiency, unspecified; E53.8 Deficiency of other specified B group vitamins
CPT/HCPCS: 36415; 77067; 80053; 80061; 82306; 82607; 82747; 85025; J1642

== ENCOUNTER 2019-05-20 21:13 | Emergency (ER) | payer MEDICARE ==
[2019-05-20 21:39] VITALS: BP 183/96
--- NOTE | 2019-05-20 21:46 | Event Note ---
ED Screening Note Date of service: 05/20/19 Time: 21:42 ED Screening Note: 54 y/o female comes in for headache with N/V. Had a seizure today at 7 something. Have a history of seizures. Takes keppra and lamica. Unknow if any head injury. Neurologist Saba. ap Sommers This initial assessment/diagnostic orders/clinical plan/treatment(s) is/are subject to change based on patients health status, clinical progression and re- assessment by fellow clinical providers in the ED. Further treatment and workup at subsequent clinical providers discretion. Patient/guardian urged not to elope from the ED as their condition may be serious if not clinically assessed and managed. Initial orders include:
[2019-05-21] MEDS ORDERED: levETIRAcetam 1000 MG/NS 0.75% 1,000 MG/100 ML BAG IV ONE
[2019-05-21] MEDS ORDERED: lamoTRIgine 25 MG TAB PO ONE
[2019-05-21 00:36] LABS: Hematocrit 33.9 % (30.3-42.9); Hemoglobin 11.5 gm/dl (10.1-14.3); Mean Corpuscular HGB Conc 34 % (30-34); Mean Corpuscular Volume 97 fl (79-97); Platelet Count 229 K/mm3 (140-440); Red Blood Count 3.48 M/mm3 (3.65-5.03); Red Cell Distribution Width 12.8 % (13.2-15.2)
[2019-05-21 00:49] LABS: Alanine Aminotransferase 8 units/L (7-56); BUN/Creatinine Ratio 20; Blood Urea Nitrogen 18 mg/dL (7-17); Hemolysis Index 5
[2019-05-21] MEDS ORDERED: LORazepam 2 MG/ML VIAL IV ONE (01:11)
--- NOTE | 2019-05-21 01:24 | Emergency Department Report ---
ED Seizure HPI - General Chief Complaint: Seizure Stated Complaint: SEIZURE/EMESIS/HEADACHE Time Seen by Provider: 05/20/19 21:42 Source: patient Mode of arrival: Ambulatory Limitations: No Limitations - History of Present Illness Initial Comments: Patient is a 54-year-old [place] female who has a history of seizure disorder who states she's been having increased seizures for last 4 days. Patient has a neurologist who apparently is weaning her off of Dilantin and Keppra in exchange for Lamictal. Patient's Lamictal bottle states take as directed on the attached sheet. Patient states she has no attached sheet she's been unable to get in touch with her neurologist to give further clarification of how to take his medication. Patient states she is having intermittent seizures. Patient has had some urinary incontinence with seizures. Patient was noted to have a episode convulsing in the emergency department but had no postictal phase. Christine ent states she has had some nausea vomiting for the last several days as well intermittently. Patient is taking the Lamictal which she feels as though she is, have a seizure. Associated Symptoms: confusion, weakness. denies: chest pain, cough, diaphoresis, fever/chills, loss of appetite, malaise, rash, shortness of breath, syncope, tongue injury, shoulder dislocation - Related Data Home Medications Medication Instructions Recorded Confirmed Last Taken Zolpidem [Ambien] 5 mg PO HS 10/13/13 01/29/18 01/27/18 5 mg Celecoxib [celeBREX] 200 mg PO DAILY 10/14/13 01/29/18 01/27/18 200 mg Dexlansoprazole [Dexilant] 60 mg PO DAILY 10/14/13 01/29/18 01/27/18 60 mg Estrogens, Conjugated (Nf) 1.25 mg PO DAILY 10/14/13 01/29/18 01/27/18 [Premarin (Nf)] 1.25 mg Furosemide 40 mg PO DAILY 10/14/13 01/29/18 01/27/18 40 mg Metoprolol Tartrate 25 mg PO DAILY 10/14/13 01/29/18 01/27/18 25 mg Previous Rx's Medication Instructions Recorded Last Taken Type Furosemide [Lasix TAB] 40 mg PO QDAY #30 tablet 06/01/16 01/27/18 Rx 40 mg Potassium Chloride [K-Dur] 10 meq PO DAILY #30 06/01/16 01/27/18 Rx 10 meq traMADoL [Ultram 50 MG tab] 50 mg PO Q6HR PRN #14 tablet 07/16/16 01/27/18 Rx 50 LORazepam [Ativan] 1 mg PO TID #60 tablet 01/30/18 Unknown Rx Metoprolol [Lopressor TAB] 25 mg PO DAILY #30 tablet 01/30/18 Unknown Rx PARoxetine HCl [PARoxetine] 40 mg PO DAILY #30 tablet 01/30/18 Unknown Rx Phenytoin [Dilantin] 100 mg PO Q8HR #90 capsule 01/30/18 Unknown Rx levETIRAcetam [Keppra TAB] 750 mg PO BID #60 tablet 01/30/18 Unknown Rx traMADoL [Ultram 50 MG tab] 50 mg PO Q6H PRN tablet 01/30/18 Unknown Rx Cyclobenzaprine HCl [Flexeril 5 MG 5 mg PO TID PRN #21 tab 04/29/18 Unknown Rx TAB] Naproxen [Naprosyn] 500 mg PO BID #14 tablet 04/29/18 Unknown Rx levETIRAcetam [Keppra TAB] 500 mg PO BID #30 tablet 05/21/19 Unknown Rx Allergies Allergy/AdvReac Type Severity Reaction Status Date / Time hydromorphone HCl AdvReac Itching Verified 06/24/17 21:08 [From Dilaudid] metoclopramide HCl AdvReac Seizure Verified 06/24/17 21:08 [From Reglan] tiagabine HCl [From Gabitril] AdvReac Seizure Verified 06/24/17 21:08 I V DYE AdvReac Itching Uncoded 11/02/16 16:30 ED Review of Systems ROS: Stated complaint: SEIZURE/EMESIS/HEADACHE Other details as noted in HPI Comment: All other systems reviewed and negative ED Past Medical Hx - Past Medical History Previous Medical History?: Yes Hx Hypertension: Yes Hx GERD: Yes Hx Arthritis: Yes (back and hip and bilat knees) Hx Seizures: Yes Additional medical history: ANEMIA, Diverticulosis, Hiatal hernia - Surgical History Past Surgical History?: Yes Hx Pacemaker: No Hx Cholecystectomy: Yes Additional Surgical History: hysterectomy. SAM FUNDOPLICATION X 3. 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 ERCP. BACK SURGERY. PORT RIGHT CHEST - Social History Smoking Status: Never Smoker Substance Use Type: None - Medications Home Medications: Home Medications Medication Instructions Recorded Confirmed Last Taken Type Zolpidem [Ambien] 5 mg PO HS 10/13/13 01/29/18 01/27/18 History 5 mg Celecoxib [celeBREX] 200 mg PO DAILY 10/14/13 01/29/18 01/27/18 History 200 mg Dexlansoprazole [Dexilant] 60 mg PO DAILY 10/14/13 01/29/18 01/27/18 History 60 mg Estrogens, Conjugated (Nf) 1.25 mg PO DAILY 10/14/13 01/29/18 01/27/18 History [Premarin (Nf)] 1.25 mg Furosemide 40 mg PO DAILY 10/14/13 01/29/18 01/27/18 History 40 mg Metoprolol Tartrate 25 mg PO DAILY 10/14/13 01/29/18 01/27/18 History 25 mg Furosemide [Lasix TAB] 40 mg PO QDAY #30 tablet 06/01/16 01/29/18 01/27/18 Rx 40 mg Potassium Chloride [K-Dur] 10 meq PO DAILY #30 06/01/16 01/29/18 01/27/18 Rx 10 meq traMADoL [Ultram 50 MG tab] 50 mg PO Q6HR PRN #14 tablet 07/16/16 01/29/18 01/27/18 Rx 50 LORazepam [Ativan] 1 mg PO TID #60 tablet 01/30/18 Unknown Rx Metoprolol [Lopressor TAB] 25 mg PO DAILY #30 tablet 01/30/18 Unknown Rx PARoxetine HCl [PARoxetine] 40 mg PO DAILY #30 tablet 01/30/18 Unknown Rx Phenytoin [Dilantin] 100 mg PO Q8HR #90 capsule 01/30/18 Unknown Rx levETIRAcetam [Keppra TAB] 750 mg PO BID #60 tablet 01/30/18 Unknown Rx traMADoL [Ultram 50 MG tab] 50 mg PO Q6H PRN tablet 01/30/18 Unknown Rx Cyclobenzaprine HCl [Flexeril 5 MG 5 mg PO TID PRN #21 tab 04/29/18 Unknown Rx TAB] Naproxen [Naprosyn] 500 mg PO BID #14 tablet 04/29/18 Unknown Rx levETIRAcetam [Keppra TAB] 500 mg PO BID #30 tablet 05/21/19 Unknown Rx ED Physical Exam - General Limitations: No Limitations General appearance: alert, in no apparent distress - Head Head exam: Present: atraumatic, normocephalic - Eye Eye exam: Present: normal appearance - ENT ENT exam: Present: mucous membranes moist. Absent: normal exam - Neck Neck exam: Present: normal inspection - Respiratory Respiratory exam: Present: normal lung sounds bilaterally. Absent: respiratory distress, wheezes, rales, rhonchi - Cardiovascular Cardiovascular Exam: Present: regular rate, normal rhythm, normal heart sounds. Absent: systolic murmur, diastolic murmur, rubs, gallop - GI/Abdominal GI/Abdominal exam: Present: soft, normal bowel sounds. Absent: distended, tenderness, guarding, rebound - Extremities Exam Extremities exam: Present: normal inspection - Back Exam Back exam: Present: normal inspection - Neurological Exam Neurological exam: Present: alert, oriented X3 - Psychiatric Psychiatric exam: Present: normal affect, normal mood - Skin Skin exam: Present: warm, dry, intact, normal color. Absent: rash ED Course Vital Signs 05/20/19 21:36 Temperature 98.3 F Pulse Rate 72 Respiratory 18 Rate Blood Pressure 183/96 O2 Sat by Pulse 100 Oximetry ED Medical Decision Making - Lab Data Result diagrams: 05/21/19 00:20 05/21/19 00:20 Lab Results 05/21/19 05/21/19 Range/Units 00:20 00:20 WBC 6.6 (4.5-11.0) K/mm3 RBC 3.48 L (3.65-5.03) M/mm3 Hgb 11.5 (10.1-14.3) gm/dl Hct 33.9 (30.3-42.9) % MCV 97 (79-97) fl MCH 33 H (28-32) pg MCHC 34 (30-34) % RDW 12.8 L (13.2-15.2) % Plt Count 229 (140-440) K/mm3 Lymph % (Auto) Art Teacher Sodium 141 (137-145) mmol/L Potassium 3.8 (3.6-5.0) mmol/L Chloride 108.1 H (98-107) mmol/L Carbon Dioxide 24 (22-30) mmol/L Anion Gap 13 mmol/L BUN 18 H (7-17) mg/dL Creatinine 0.9 (0.7-1.2) mg/dL Estimated GFR > 60 ml/min BUN/Creatinine Ratio 20 % Glucose 99 (65-100) mg/dL Calcium 9.0 (8.4-10.2) mg/dL Magnesium 2.10 (1.7-2.3) mg/dL Total Bilirubin 0.20 (0.1-1.2) mg/dL AST 17 (5-40) units/L ALT 8 (7-56) units/L Alkaline Phosphatase 60 (35-129) units/L Total Protein 7.3 (6.3-8.2) g/dL Albumin 4.0 (3.9-5) g/dL Albumin/Globulin Ratio 1.2 % - Medical Decision Making Patient laboratory studies are within normal limits. There were ordered to rule out reversible causes of seizure. Patient was loaded with Keppra as Francy medication that we cannot check a level for empirically gave her 1 g. The patient has been completely weaned off of Dilantin at this time is still taking the Keppra. Patient should continue his Keppra 500 mg twice a day. Regards to the patient's Lamictal I've instructed the patient to take 25 mg daily for the next 2 weeks and in the interim to follow with her primary care physician as well as her neurologist. Critical care attestation.: If time is entered above; I have spent that time in minutes in the direct care of this critically ill patient, excluding procedure time. ED Disposition Clinical Impression: Nonepileptic episode Disposition: DC- TO HOME OR SELFCARE Is pt being admited?: No Does the pt Need Aspirin: No Condition: Stable Additional Instructions: Lamictal dose is as follows: Please take 25 mg by mouth daily Follow-up with your neurologist or primary care physician within the next 2 weeks for further instructions on the dosage of his medication. Prescriptions: levETIRAcetam [Keppra TAB] 500 mg PO BID #30 tablet Time of Disposition: 01:24
[2019-05-21] MEDS ORDERED: diphenhydrAMINE 25 MG CAP PO ONE (01:35)
[2019-05-21] MEDS ORDERED: diphenhydrAMINE 25 MG/10 ML ORAL LIQUID PO ONE (02:23)
[2019-05-21 02:38] LABS: Anisocytosis Few; Basophils % (Manual) 0 % (0.0-1.8); Eosinophils % (Manual) 0 % (0.0-4.3); Large Platelets Few; Ovalocytes Few; Platelet Estimate Consistent w Auto; Total Cells Counted 100
== END 2019-05-21 01:57 | disposition home or self-care (01) ==
LOC: ED 21:13
DX: G40.909 Epilepsy, unspecified, not intractable, without status epilepticus (principal); I10 Essential (primary) hypertension; K21.9 Gastro-esophageal reflux disease without esophagitis; M19.90 Unspecified osteoarthritis, unspecified site; D64.9 Anemia, unspecified; K57.90 Diverticulosis of intestine, part unspecified, without perforation or abscess without bleeding; Z90.49 Acquired absence of other specified parts of digestive tract; Z90.710 Acquired absence of both cervix and uterus; Z98.890 Other specified postprocedural states; Z79.899 Other long term (current) drug therapy; Z88.4 Allergy status to anesthetic agent; Z88.8 Allergy status to other drugs, medicaments and biological substances
CPT/HCPCS: 36415; 80053; 83735; 85007; 85025; 96365; 96366; 96375; 99283; J1953; J2060

== ENCOUNTER 2019-10-11 06:17 | Emergency (ER) | payer MEDICARE ==
[2019-10-11] MEDS ORDERED: MECLIZINE 25 MG TAB PO ONE (07:18)
[2019-10-11] MEDS ORDERED: MORPHINE 4 MG/1 ML INJ IV ONE ×2 (07:19→10:10)
[2019-10-11] MEDS ORDERED: ONDANSETRON 4 MG/2 ML INJ IV ONE (07:19)
[2019-10-11] MEDS ORDERED: KETOROLAC 30 MG/1 ML INJ IV ONE (07:24)
--- NOTE | 2019-10-11 07:55 | Emergency Department Report ---
ED Headache HPI - General Chief Complaint: High BP Stated Complaint: HBP Time Seen by Provider: 10/11/19 07:08 Source: patient Exam Limitations: no limitations - History of Present Illness Initial Comments: 54-year-old female with a past medical history of hypertension, seizures, arthritis, previous back surgery, Sam fundoplication presents to the hospital with complaints of elevated blood pressure to a week and headache x4 days. Patient states her systolic blood pressure has been ranging in the 180s and is typically in the 140s. Patient compliant with her metoprolol 25 mg at bedtime with last dose last night. She does not take any other blood pressure medications. She complains of some mild blurred vision. Her baseline patient raised reading glasses but reports no previous problems with her distance vision. For 4 days patient has had a constant right-sided headache rated 8/10 in intensity. Headache has not improved despite taking [id number] NSAIDs and Goody powders as well as tramadol. Patient denies history of chronic headaches. Last seizure was 1 month ago. She denies chest pain, shortness of breath, focal weakness, or focal numbness. She does report some dizziness particularly when looking or move her head to the right. Patient does have a history of vertigo. Her PMD Dr [facility]. Patient has vascular access port located in her chest Allergies/Adverse Reactions: Allergies hydromorphone HCl [From Dilaudid] Adverse Reaction (Verified 06/24/17 21:08) Itching metoclopramide HCl [From Reglan] Adverse Reaction (Verified 06/24/17 21:08) Seizure tiagabine HCl [From Gabitril] Adverse Reaction (Verified 06/24/17 21:08) Seizure I V DYE Adverse Reaction (Uncoded 11/02/16 16:30) Itching Home Medications: Ambulatory Orders Zolpidem [Ambien] 5 mg PO HS 10/13/13 Celecoxib [celeBREX] 200 mg PO DAILY 10/14/13 Dexlansoprazole [Dexilant] 60 mg PO DAILY 10/14/13 Estrogens, Conjugated (Nf) [Premarin (Nf)] 1.25 mg PO DAILY 10/14/13 Furosemide 40 mg PO DAILY 10/14/13 Metoprolol Tartrate 25 mg PO DAILY 10/14/13 Furosemide [Lasix TAB] 40 mg PO QDAY #30 tablet 06/01/16 Potassium Chloride [K-Dur] 10 meq PO DAILY #30 06/01/16 traMADoL [Ultram 50 MG tab] 50 mg PO Q6HR PRN #14 tablet 07/16/16 LORazepam [Ativan] 1 mg PO TID #60 tablet 01/30/18 Metoprolol [Lopressor TAB] 25 mg PO DAILY #30 tablet 01/30/18 PARoxetine HCl [PARoxetine] 40 mg PO DAILY #30 tablet 01/30/18 Phenytoin [Dilantin] 100 mg PO Q8HR #90 capsule 01/30/18 levETIRAcetam [Keppra TAB] 750 mg PO BID #60 tablet 01/30/18 traMADoL [Ultram 50 MG tab] 50 mg PO Q6H PRN tablet 01/30/18 Cyclobenzaprine HCl [Flexeril 5 MG TAB] 5 mg PO TID PRN #21 tab 04/29/18 Naproxen [Naprosyn] 500 mg PO BID #14 tablet 04/29/18 levETIRAcetam [Keppra TAB] 500 mg PO BID #30 tablet 05/21/19 Meclizine [Antivert] 25 mg PO TID PRN #20 tablet 10/11/19 Ondansetron [Zofran Odt] 4 mg PO Q8HR PRN #20 tab.rapdis 10/11/19 oxyCODONE /ACETAMINOPHEN [Percocet 5/325] 1 tab PO Q4HR PRN #14 tab 10/11/19 ED Review of Systems ROS: Stated complaint: HBP Other details as noted in HPI Comment: All other systems reviewed and negative ED Past Medical Hx - Past Medical History Previous Medical History?: Yes Hx Hypertension: Yes Hx GERD: Yes Hx Arthritis: Yes (back and hip and bilat knees) Hx Seizures: Yes Additional medical history: ANEMIA, Diverticulosis, Hiatal hernia - Surgical History Past Surgical History?: Yes Hx Pacemaker: No Hx Cholecystectomy: Yes Additional Surgical History: hysterectomy. SAM FUNDOPLICATION X 3. 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 ERCP. BACK SURGERY. Port to right chest. PORT RIGHT CHEST - Social History Smoking Status: Never Smoker Substance Use Type: None - Medications Home Medications: Home Medications Medication Instructions Recorded Confirmed Last Taken Type Zolpidem [Ambien] 5 mg PO HS 0501/29/18 01/27/18 History 5 mg Celecoxib [celeBREX] 200 mg PO DAILY 10/14/13 01/29/18 01/27/18 History 200 mg Dexlansoprazole [Dexilant] 60 mg PO DAILY 10/14/13 01/29/18 01/27/18 History 60 mg Estrogens, Conjugated (Nf) 1.25 mg PO DAILY 10/14/13 01/29/18 01/27/18 History [Premarin (Nf)] 1.25 mg Furosemide 40 mg PO DAILY 10/14/13 01/29/18 01/27/18 History 40 mg Metoprolol Tartrate 25 mg PO DAILY 10/14/13 01/29/18 01/27/18 History 25 mg Furosemide [Lasix TAB] 40 mg PO QDAY #30 tablet 06/01/16 01/29/18 01/27/18 Rx 40 mg Potassium Chloride [K-Dur] 10 meq PO DAILY #30 06/01/16 01/29/18 01/27/18 Rx 10 meq traMADoL [Ultram 50 MG tab] 50 mg PO Q6HR PRN #14 tablet 07/16/16 01/29/18 01/27/18 Rx 50 LORazepam [Ativan] 1 mg PO TID #60 tablet 01/30/18 Unknown Rx Metoprolol [Lopressor TAB] 25 mg PO DAILY #30 tablet 01/30/18 Unknown Rx PARoxetine HCl [PARoxetine] 40 mg PO DAILY #30 tablet 01/30/18 Unknown Rx Phenytoin [Dilantin] 100 mg PO Q8HR #90 capsule 01/30/18 Unknown Rx levETIRAcetam [Keppra TAB] 750 mg PO BID #60 tablet 01/30/18 Unknown Rx traMADoL [Ultram 50 MG tab] 50 mg PO Q6H PRN tablet 01/30/18 Unknown Rx Cyclobenzaprine HCl [Flexeril 5 MG 5 mg PO TID PRN #21 tab 04/29/18 Unknown Rx TAB] Naproxen [Naprosyn] 500 mg PO BID #14 tablet 04/29/18 Unknown Rx levETIRAcetam [Keppra TAB] 500 mg PO BID #30 tablet 05/21/19 Unknown Rx Meclizine [Antivert] 25 mg PO TID PRN #20 tablet 10/11/19 Unknown Rx Ondansetron [Zofran Odt] 4 mg PO Q8HR PRN #20 tab.rapdis 10/11/19 Unknown Rx oxyCODONE /ACETAMINOPHEN [Percocet 1 tab PO Q4HR PRN #14 tab 10/11/19 Unknown Rx 5/325] ED Physical Exam - General Limitations: No Limitations - Other Other exam information: General: No acute distress Head: Atraumatic, no temporal tenderness Eyes: normal appearance, patient reports dizziness tracking my finger with right gaze. Extraocular movements and ENT: Moist mucous membranes Neck: Normal appearance, no midline tenderness Chest: Clear to auscultation bilaterally CV: Regular rate and rhythm Abdomen: Soft, normal bowel sounds, nontender, nondistended, no rebound or guarding Back: Normal inspection Extremity: Normal inspection, full range of motion Neuro: Alert O x 3, no facial asymmetry, speech clear, no gross motor sensory deficit Psych: Appropriate behavior Skin: No rash ED Course Vital Signs 10/11/19 10/11/19 10/11/19 06:21 09:28 11:00 Temperature 98.4 F Pulse Rate 68 78 Respiratory 18 Rate Blood Pressure 186/93 Blood Pressure 156/86 147/79 [Left] O2 Sat by Pulse 100 100 Oximetry 10/11/19 11:24 Temperature Pulse Rate Respiratory Rate Blood Pressure Blood Pressure 147/79 [Left] O2 Sat by Pulse Oximetry - Reevaluation(s) Reevaluation #1: 10/11/19 11:49 pain relieved with additional morphine. BP improved with pain relief ED Medical Decision Making - Lab Data Result diagrams: 10/11/19 08:15 10/11/19 07:19 Lab Results 10/11/19 10/11/19 Range/Units 07:19 08:15 WBC 6.1 (4.5-11.0) K/mm3 RBC 3.49 L (3.65-5.03) M/mm3 Hgb 11.4 (10.1-14.3) gm/dl Hct 34.4 (30.3-42.9) % MCV 99 H (79-97) fl MCH 33 H (28-32) pg MCHC 33 (30-34) % RDW 12.1 L (13.2-15.2) % Plt Count 299 (140-440) K/mm3 Lymph % (Auto) 44.6 H (13.4-35.0) % Burke % (Auto) 5.3 (0.0-7.3) % Eos % (Auto) 0.7 (0.0-4.3) % Baso % (Auto) 1.7 (0.0-1.8) % Lymph # 2.7 (1.2-5.4) K/mm3 Burke # 0.3 (0.0-0.8) K/mm3 Eos # 0.0 (0.0-0.4) K/mm3 Baso # 0.1 (0.0-0.1) K/mm3 Seg Neutrophils % 47.7 (40.0-70.0) % Seg Neutrophils # 2.9 (1.8-7.7) K/mm3 Sodium 141 (137-145) mmol/L Potassium 4.0 (3.6-5.0) mmol/L Chloride 102.9 (98-107) mmol/L Carbon Dioxide 26 (22-30) mmol/L Anion Gap 16 mmol/L BUN 17 (7-17) mg/dL Creatinine 1.2 (0.7-1.2) mg/dL Estimated GFR 56 ml/min BUN/Creatinine Ratio 14 % Glucose 102 H (65-100) mg/dL Calcium 9.3 (8.4-10.2) mg/dL - Radiology Data Radiology results: report reviewed CT BRAIN: 10/11/2019 INDICATION / CLINICAL INFORMATION: right sided headache x 4 days w/nausea and dizzy. COMPARISON: 01/28/2018 FINDINGS: BRAIN/INTRACRANIAL STRUCTURES: Unenhanced CT images of the brain demonstrate no evidence of acute intracranial abnormality. Ventricles and sulci are at the upper limits of normal in size and shape for a patient of this age. There is no evidence of acute ischemic injury, hemorrhage, or mass. There are no abnormal extra-axial fluid collections. Incidental note is made of an empty sella, generally considered to be of no clinical significance. EXTRACRANIAL STRUCTURES: Unremarkable. IMPRESSION: Negative unenhanced CT of the brain. No change when compared to . - Medical Decision Making Patient has a headache unrelieved with [id number] medication. Headache improved after 2 doses of morphine in the ED. Patient also received meclizine for dizziness. Patient feeling much better with ED treatment with resolution of hypertension with pain control. Will be discharged on Percocet (patient states she can tolerate Percocet but not hydrocodone) and additional meds for symptom relief. Outpatient follow-up reported. Patient has a neurologist - Differential Diagnosis Migraine, tension headache, cluster headache, ICH, mass, hypertensive Critical Care Time: No Critical care attestation.: If time is entered above; I have spent that time in minutes in the direct care of this critically ill patient, excluding procedure time. ED Disposition Clinical Impression: Right-sided headache, Uncontrolled hypertension Disposition: - TO HOME OR SELFCARE Is pt being admited?: No Does the pt Need Aspirin: No Condition: Stable Instructions: Hypertension (ED), Acute Headache (ED) Additional Instructions: Take the medication as prescribed. Follow-up with your doctor or doctor/clinic provided. Return if symptoms worsen as indicated by your discharge instructions. Prescriptions: Meclizine [Antivert] 25 mg PO TID PRN #20 tablet PRN Reason: Vertigo oxyCODONE /ACETAMINOPHEN [Percocet 5/325] 1 tab PO Q4HR PRN #14 tab PRN Reason: Pain , Severe (7-10) Ondansetron [Zofran Odt] 4 mg PO Q8HR PRN #20 tab.rapdis PRN Reason: Nausea And Vomiting Referrals: PRIMARY CARE,MD [Primary Care Provider] - 3-5 Days your, neurologist [Other] - 3-5 Days Time of Disposition: 11:52 - Assessment Assessment Interval: Baseline - Level of Consciousness 1a. Level of Consciousness: alert/keenly responsive - LOC Questions 1b. LOC Questions: answers both correctly - LOC Command 1c. LOC Commands: performs tasks correctly - Best Gaze 2. Best Gaze: normal - Visual 3. Visual: no visual loss - Facial Palsy 4. Facial Palsy: normal symmetrical movement - Motor Arm 5a. Motor Arm Left: no drift 5b. Motor Arm Right: no drift - Motor Leg 6a. Motor Leg Left: no drift 6b. Motor Leg Right: no drift - Limb Ataxia 7. Limb Ataxia: absent - Sensory 8. Sensory: normal - Best Language 9. Best Language: no aphasia - Dysarthria 10. Dysarthria: normal - Extinction and Inattention 11. Extinction/Inattention: no abnormality - Scoring Total Score: 0 Stroke Severity: No Stroke Symptoms
[2019-10-11 08:24] LABS: Basophils # (Auto) 0.1 K/mm3 (0.0-0.1); Basophils % (Auto) 1.7 % (0.0-1.8); Eosinophils % (Auto) 0.7 % (0.0-4.3); Hematocrit 34.4 % (30.3-42.9); Hemoglobin 11.4 gm/dl (10.1-14.3); Lymphocytes # (Auto) 2.7 K/mm3 (1.2-5.4); Lymphocytes % (Auto) 44.6 % (13.4-35.0); Mean Corpuscular HGB Conc 33 % (30-34); Mean Corpuscular Volume 99 fl (79-97); Monocytes # (Auto) 0.3 K/mm3 (0.0-0.8); Monocytes % (Auto) 5.3 % (0.0-7.3); Platelet Count 299 K/mm3 (140-440); Red Blood Count 3.49 M/mm3 (3.65-5.03); Red Cell Distribution Width 12.1 % (13.2-15.2)
--- NOTE | 2019-10-11 08:40 | Cat Scan Report ---
CT BRAIN: 10/11/2019 INDICATION / CLINICAL INFORMATION: right sided headache x 4 days w/nausea and dizzy. COMPARISON: 01/28/2018 FINDINGS: BRAIN/INTRACRANIAL STRUCTURES: Unenhanced CT images of the brain demonstrate no evidence of acute int racranial abnormality. Ventricles and sulci are at the upper limits of normal in size and shape for a patient of this age. There is no evidence of acute ischemic injury, hemorrhage, or mass. There are no abnormal extra-axial fluid collections. Incidental note is made of an empty sella, generally considered to be of no clinical significance. EXTRACRANIAL STRUCTURES: Unremarkable. IMPRESSION: Negative unenhanced CT of the brain. No change when compared to 01/28/2018. All CT scans at this location are performed using dose reduction to ALARA by means of automated expos ure control. Signer Name: Kenn Eugene MD Signed: 10/11/2019 8:36 AM Workstation Name: [id number]
[2019-10-11 08:44] LABS: Calcium 9.3 mg/dL (8.4-10.2)
[2019-10-11 11:50] VITALS: BP 146/79
== END 2019-10-11 12:28 | disposition home or self-care (01) ==
LOC: ED 06:17
DX: I10 Essential (primary) hypertension (principal); R51 Headache; K21.9 Gastro-esophageal reflux disease without esophagitis; M19.90 Unspecified osteoarthritis, unspecified site; D64.9 Anemia, unspecified; Z86.69 Personal history of other diseases of the nervous system and sense organs; Z98.890 Other specified postprocedural states; Z79.899 Other long term (current) drug therapy; Z90.49 Acquired absence of other specified parts of digestive tract; Z90.710 Acquired absence of both cervix and uterus; Z88.8 Allergy status to other drugs, medicaments and biological substances; Z91.041 Radiographic dye allergy status
CPT/HCPCS: 36415; 70450; 80048; 85025; 96374; 96375; 96376; 99285; J1642; J1885; J2270; J2405

== ENCOUNTER 2019-10-11 23:57 | Emergency (ER) | payer MEDICARE ==
[2019-10-12 00:10] VITALS: BP 177/109
--- NOTE | 2019-10-12 01:17 | Emergency Department Report ---
ED General Adult HPI - General Chief complaint: High BP Stated complaint: HIGH BLOOD PRESSURE HEADACHE NAUSEA Time Seen by Provider: 10/12/19 01:02 Source: patient Mode of arrival: Ambulatory Limitations: No Limitations - History of Present Illness Initial comments: CC: "My blood pressure is staying up." HPI: Ms. Alfaro is a 54 yo female with hx of HTN, arthritis, GERD, Hiatal hernia who presents to the ED for elevated blood pressure 176/77 at home. She was treated for vertigo yesterday morning in this ED. Blood pressure has remained elevated. Mild headache has resolved. Denies blurry vision currently. Denies paralysis. Denies toruble with speech or gait. Has been taking Metoprolol and Lasix for several years. No hx of heart disease. -: Gradual, days(s) (3) Location: head Consistency: now resolved Improves with: none Worsens with: none Associated Symptoms: other (vertigo, blurry vision) - Related Data Home Medications Medication Instructions Recorded Confirmed Last Taken Zolpidem [Ambien] 5 mg PO HS 10/13/13 01/29/18 01/27/18 5 mg Celecoxib [celeBREX] 200 mg PO DAILY 10/14/13 01/29/18 01/27/18 200 mg Dexlansoprazole [Dexilant] 60 mg PO DAILY 10/14/13 01/29/18 01/27/18 60 mg Estrogens, Conjugated (Nf) 1.25 mg PO DAILY 10/14/13 01/29/18 01/27/18 [Premarin (Nf)] 1.25 mg Furosemide 40 mg PO DAILY 10/14/13 01/29/18 01/27/18 40 mg Metoprolol Tartrate 25 mg PO DAILY 10/14/13 01/29/18 01/27/18 25 mg Previous Rx's Medication Instructions Recorded Last Taken Type Furosemide [Lasix TAB] 40 mg PO QDAY #30 tablet 06/01/16 01/27/18 Rx 40 mg Potassium Chloride [K-Dur] 10 meq PO DAILY #30 06/01/16 01/27/18 Rx 10 meq traMADoL [Ultram 50 MG tab] 50 mg PO Q6HR PRN #14 tablet 07/16/16 01/27/18 Rx 50 LORazepam [Ativan] 1 mg PO TID #60 tablet 01/30/18 Unknown Rx Metoprolol [Lopressor TAB] 25 mg PO DAILY #30 tablet 01/30/18 Unknown Rx PARoxetine HCl [PARoxetine] 40 mg PO DAILY #30 tablet 01/30/18 Unknown Rx Phenytoin [Dilantin] 100 mg PO Q8HR #90 capsule 01/30/18 Unknown Rx levETIRAcetam [Keppra TAB] 750 mg PO BID #60 tablet 01/30/18 Unknown Rx traMADoL [Ultram 50 MG tab] 50 mg PO Q6H PRN tablet 01/30/18 Unknown Rx Cyclobenzaprine HCl [Flexeril 5 MG 5 mg PO TID PRN #21 tab 04/29/18 Unknown Rx TAB] Naproxen [Naprosyn] 500 mg PO BID #14 tablet 04/29/18 Unknown Rx levETIRAcetam [Keppra TAB] 500 mg PO BID #30 tablet 05/21/19 Unknown Rx Meclizine [Antivert] 25 mg PO TID PRN #20 tablet 10/11/19 Unknown Rx Ondansetron [Zofran Odt] 4 mg PO Q8HR PRN #20 tab.rapdis 10/11/19 Unknown Rx oxyCODONE /ACETAMINOPHEN [Percocet 1 tab PO Q4HR PRN #14 tab 10/11/19 Unknown Rx 5/325] Potassium Chloride [K-Dur] 10 meq PO QDAY 30 Days #30 tablet 10/12/19 Unknown Rx amLODIPine 5 mg PO DAILY 30 Days #30 tab 10/12/19 Unknown Rx hydroCHLOROthiazide [HCTZ] 25 mg PO QDAY 30 Days #30 tablet 10/12/19 Unknown Rx Allergies Allergy/AdvReac Type Severity Reaction Status Date / Time hydromorphone HCl AdvReac Itching Verified 06/24/17 21:08 [From Dilaudid] metoclopramide HCl AdvReac Seizure Verified 06/24/17 21:08 [From Reglan] tiagabine HCl [From Gabitril] AdvReac Seizure Verified 06/24/17 21:08 I V DYE AdvReac Itching Uncoded 11/02/16 16:30 ED Review of Systems ROS: Stated complaint: HIGH BLOOD PRESSURE HEADACHE NAUSEA Other details as noted in HPI Comment: All other systems reviewed and negative Constitutional: denies: fever, malaise Respiratory: denies: cough Cardiovascular: denies: chest pain Gastrointestinal: denies: abdominal pain ED Past Medical Hx - Past Medical History Previous Medical History?: Yes Hx Hypertension: Yes Hx GERD: Yes Hx Arthritis: Yes (back and hip and bilat knees) Hx Seizures: Yes Additional medical history: ANEMIA, Diverticulosis, Hiatal hernia - Surgical History Past Surgical History?: Yes Hx Pacemaker: No Hx Cholecystectomy: Yes Additional Surgical History: hysterectomy. SAM FUNDOPLICATION X 3. 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 ERCP. BACK SURGERY. port to right chest. Port to right chest. PORT RIGHT CHEST - Social History Smoking Status: Never Smoker Substance Use Type: None - Medications Home Medications: Home Medications Medication Instructions Recorded Confirmed Last Taken Type Zolpidem [Ambien] 5 mg PO HS 10/13/13 01/29/18 01/27/18 History 5 mg Celecoxib [celeBREX] 200 mg PO DAILY 10/14/13 01/29/18 01/27/18 History 200 mg Dexlansoprazole [Dexilant] 60 mg PO DAILY 10/14/13 01/29/18 01/27/18 History 60 mg Estrogens, Conjugated (Nf) 1.25 mg PO DAILY 10/14/13 01/29/18 01/27/18 History [Premarin (Nf)] 1.25 mg Furosemide 40 mg PO DAILY 10/14/13 01/29/18 01/27/18 History 40 mg Metoprolol Tartrate 25 mg PO DAILY 10/14/13 01/29/18 01/27/18 History 25 mg Furosemide [Lasix TAB] 40 mg PO QDAY #30 tablet 06/01/16 01/29/18 01/27/18 Rx 40 mg Potassium Chloride [K-Dur] 10 meq PO DAILY #30 06/01/16 01/29/18 01/27/18 Rx 10 meq traMADoL [Ultram 50 MG tab] 50 mg PO Q6HR PRN #14 tablet 07/16/16 01/29/18 01/27/18 Rx 50 LORazepam [Ativan] 1 mg PO TID #60 tablet 01/30/18 Unknown Rx Metoprolol [Lopressor TAB] 25 mg PO DAILY #30 tablet 01/30/18 Unknown Rx PARoxetine HCl [PARoxetine] 40 mg PO DAILY #30 tablet 01/30/18 Unknown Rx Phenytoin [Dilantin] 100 mg PO Q8HR #90 capsule 01/30/18 Unknown Rx levETIRAcetam [Keppra TAB] 750 mg PO BID #60 tablet 01/30/18 Unknown Rx traMADoL [Ultram 50 MG tab] 50 mg PO Q6H PRN tablet 01/30/18 Unknown Rx Cyclobenzaprine HCl [Flexeril 5 MG 5 mg PO TID PRN #21 tab 04/29/18 Unknown Rx TAB] Naproxen [Naprosyn] 500 mg PO BID #14 tablet 04/29/18 Unknown Rx levETIRAcetam [Keppra TAB] 500 mg PO BID #30 tablet 05/21/19 Unknown Rx Meclizine [Antivert] 25 mg PO TID PRN #20 tablet 10/11/19 Unknown Rx Ondansetron [Zofran Odt] 4 mg PO Q8HR PRN #20 tab.rapdis 10/11/19 Unknown Rx oxyCODONE /ACETAMINOPHEN [Percocet 1 tab PO Q4HR PRN #14 tab 10/11/19 Unknown Rx 5/325] Potassium Chloride [K-Dur] 10 meq PO QDAY 30 Days #30 tablet 10/12/19 Unknown Rx amLODIPine 5 mg PO DAILY 30 Days #30 tab 10/12/19 Unknown Rx hydroCHLOROthiazide [HCTZ] 25 mg PO QDAY 30 Days #30 tablet 10/12/19 Unknown Rx ED Physical Exam - General Limitations: No Limitations General appearance: alert, in no apparent distress, other (well appearing, brisk ambulation to treatment room) - Head Head exam: Present: atraumatic, normocephalic - Eye Eye exam: Present: normal appearance - ENT ENT exam: Present: mucous membranes moist - Neck Neck exam: Present: normal inspection, full ROM - Respiratory Respiratory exam: Present: normal lung sounds bilaterally. Absent: respiratory distress, wheezes, rales, rhonchi - Cardiovascular Cardiovascular Exam: Present: regular rate, normal rhythm, normal heart sounds. Absent: systolic murmur, diastolic murmur, rubs, gallop - GI/Abdominal GI/Abdominal exam: Present: soft, normal bowel sounds. Absent: distended, tenderness, guarding, rebound - Extremities Exam Extremities exam: Present: normal inspection - Back Exam Back exam: Present: normal inspection - Neurological Exam Neurological exam: Present: alert, oriented X3, CN II-XII intact, normal gait - Expanded Neurological Exam Expanded Patient oriented to: Present: person, place, time Speech: Present: fluid speech Cerebellar function: Finger to Nose: Normal Sensory exam: Upper Extremity Light Touch: Normal Motor strength exam: RUE: 5, LUE: 5, RLE: 5, LLE: 5 Best Eye Response (Machias): (4) open spontaneously Best Motor Response (José Miguel): (6) obeys commands Best Verbal Response (José Miguel): (5) oriented José Miguel Total: 15 - Psychiatric Psychiatric exam: Present: normal affect, normal mood - Skin Skin exam: Present: warm, dry, intact, normal color. Absent: rash ED Course Vital Signs 10/12/19 00:05 Temperature 98.2 F Pulse Rate 106 H Respiratory 16 Rate Blood Pressure 177/109 [Right] O2 Sat by Pulse 99 Oximetry ED Medical Decision Making - Medical Decision Making Ms. Alfaro presents with hypertensive urgency. I do not suspect TIA from this presentation. I have changed BP regimen to amlodipine and hctz. She understands to continue potassium therapy. Referred to outpatient physician for BP management. Critical care attestation.: If time is entered above; I have spent that time in minutes in the direct care of this critically ill patient, excluding procedure time. ED Disposition Clinical Impression: Hypertension Disposition: DC-01 TO HOME OR SELFCARE Is pt being admited?: No Does the pt Need Aspirin: No Condition: Stable Instructions: Hypertension (ED) Prescriptions: amLODIPine 5 mg PO DAILY 30 Days #30 tab hydroCHLOROthiazide [HCTZ] 25 mg PO QDAY 30 Days #30 tablet Potassium Chloride [K-Dur] 10 meq PO QDAY 30 Days #30 tablet Referrals: MONROE STEVENS MD [Staff Physician] - 3-5 Days
== END 2019-10-12 01:20 | disposition home or self-care (01) ==
LOC: ED 23:57
DX: I10 Essential (primary) hypertension (principal); K21.9 Gastro-esophageal reflux disease without esophagitis; M13.88 Other specified arthritis, other site; Z86.2 Personal history of diseases of the blood and blood-forming organs and certain disorders involving the immune mechanism; Z98.890 Other specified postprocedural states; Z79.899 Other long term (current) drug therapy; Z90.49 Acquired absence of other specified parts of digestive tract; Z90.710 Acquired absence of both cervix and uterus; Z88.1 Allergy status to other antibiotic agents; Z88.6 Allergy status to analgesic agent; Z91.041 Radiographic dye allergy status
CPT/HCPCS: 99282

== ENCOUNTER 2021-10-11 21:18 | Emergency (ER) | payer MEDICARE ==
[2021-10-12] MEDS ORDERED: levETIRAcetam 1000 MG/NS 0.75% 1,000 MG/100 ML BAG IV ONE (09:24)
[2021-10-12] MEDS ORDERED: SODIUM CHLORIDE 0.9% 1000 ML 1,000 ML IV ONE (09:24)
[2021-10-12] MEDS ORDERED: ONDANSETRON 4 MG/2 ML INJ IV ONE (09:25)
[2021-10-12] MEDS ORDERED: fentaNYL 100 MCG/2 ML INJ IV ONE (09:25)
--- NOTE | 2021-10-12 09:30 | Emergency Department Report ---
ED Seizure HPI - General Chief Complaint: Seizure Stated Complaint: SEIZURES Time Seen by Provider: 10/12/21 09:14 Source: patient Mode of arrival: Ambulatory Limitations: No Limitations - History of Present Illness Initial Comments: 86-year-old female with a history of seizure who presents with seizure episode after she ran out of medication on Friday 3 days ago. She said at neurology was trying to change seizure medicine from Lamictal and Keppra to something else that the insurance company was having problem pain for. She says she called the clinic 3 days ago and was told that neurology will be out of the office until October 15. She has no other means but to come to ED for treatment. She reported an episode of seizure around 6 PM yesterday and had another in the waiting room this morning. No fever or chills reported. Pt denies any other modifying or associated factors. - Related Data Home Medications Medication Instructions Recorded Confirmed Last Taken Dexlansoprazole [Dexilant] 60 mg PO DAILY 10/14/13 08/05/21 08/03/21 Estrogens, Conjugated (Nf) 1.25 mg PO DAILY 10/14/13 08/05/21 08/03/21 [Premarin (Nf)] Furosemide 40 mg PO DAILY 10/14/13 08/05/21 1 Week Ago ~07/31/21 Promethazine [Phenergan] 25 mg PO Q8HR PRN 08/05/21 08/05/21 08/03/21 Cholecalciferol (Vitamin D3) 50,000 unit PO QWEEK 08/07/21 08/07/21 07/29/21 [Vitamin D3 50,000UNIT CAP] Metoprolol [Lopressor TAB] 50 mg PO QDAY 08/07/21 08/07/21 08/03/21 Venlafaxine Xr [Effexor XR] 75 mg PO QDAY 08/07/21 08/07/21 08/03/21 traZODone [Desyrel] 50 mg PO QHS 08/07/21 08/07/21 08/03/21 Previous Rx's Medication Instructions Recorded Last Taken Type Potassium Chloride [K-Dur] 10 meq PO DAILY #30 06/01/16 1 Week Ago Rx ~07/31/21 Cyclobenzaprine [Flexeril 10 MG 5 mg PO TID PRN #90 tablet 08/08/21 Unknown Rx TAB] Metoprolol [Lopressor TAB] 25 mg PO DAILY #30 tablet 08/08/21 Unknown Rx PARoxetine [Paxil] 40 mg PO DAILY #30 tablet 08/08/21 Unknown Rx amLODIPine 5 mg PO DAILY tablet 08/08/21 Unknown Rx lamoTRIgine [LaMICtal] 200 mg PO BID 15 Days #60 tablet NS 10/12/21 Unknown Rx lamoTRIgine [Lamictal] 200 mg PO BID 15 Days #30 tab NS 10/12/21 Unknown Rx levETIRAcetam [Keppra] 1,000 mg PO BID 15 Days #60 10/12/21 Unknown Rx oral.liqd NS Allergies Allergy/AdvReac Type Severity Reaction Status Date / Time lisinopril Allergy Angioedema Verified 08/07/21 10:53 hydromorphone HCl AdvReac Itching Verified 08/07/21 10:53 [From Dilaudid] metoclopramide HCl AdvReac Seizure, Verified 08/07/21 10:53 [From Reglan] itching tiagabine HCl [From Gabitril] AdvReac Seizure Verified 08/07/21 10:53 I V DYE AdvReac Seizure Uncoded 08/07/21 10:53 ED Review of Systems ROS: Stated complaint: SEIZURES Other details as noted in HPI Comment: All other systems reviewed and negative Neurological: other (seizure) ED Past Medical Hx - Past Medical History Hx Hypertension: Yes Hx Congestive Heart Failure: No Hx Diabetes: No Hx GERD: Yes Hx Renal Disease: No Hx Sickle Cell Disease: No Hx Arthritis: Yes (back and hip and bilat knees) Hx Seizures: Yes (08/04/21) Hx Kidney Stones: No Hx Asthma: No Hx COPD: No Hx Tuberculosis: No Hx HIV: No Additional medical history: ANEMIA, Diverticulosis, Hiatal hernia - Surgical History Hx Pacemaker: No Hx Cholecystectomy: Yes Additional Surgical History: hysterectomy. SAM FUNDOPLICATION X 3. 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 ERCP. BACK SURGERY. port to right c hest. Port to right chest. PORT RIGHT CHEST - Social History Smoking Status: Never Smoker - Medications Home Medications: Home Medications Medication Instructions Recorded Confirmed Last Taken Type Dexlansoprazole [Dexilant] 60 mg PO DAILY 10/14/13 08/05/21 08/03/21 History Estrogens, Conjugated (Nf) 1.25 mg PO DAILY 10/14/13 08/05/21 08/03/21 History [Premarin (Nf)] Furosemide 40 mg PO DAILY 10/14/13 08/05/21 1 Week Ago History ~07/31/21 Potassium Chloride [K-Dur] 10 meq PO DAILY #30 06/01/16 08/07/21 1 Week Ago Rx ~07/31/21 Promethazine [Phenergan] 25 mg PO Q8HR PRN 08/05/21 08/05/21 08/03/21 History Cholecalciferol (Vitamin D3) 50,000 unit PO QWEEK 08/07/21 08/07/21 07/29/21 History [Vitamin D3 50,000UNIT CAP] Metoprolol [Lopressor TAB] 50 mg PO QDAY 08/07/21 08/07/21 08/03/21 History Venlafaxine Xr [Effexor XR] 75 mg PO QDAY 08/07/21 08/07/21 08/03/21 History traZODone [Desyrel] 50 mg PO QHS 08/07/21 08/07/21 08/03/21 History Cyclobenzaprine [Flexeril 10 MG 5 mg PO TID PRN #90 tablet 08/08/21 Unknown Rx TAB] Metoprolol [Lopressor TAB] 25 mg PO DAILY #30 tablet 08/08/21 Unknown Rx PARoxetine [Paxil] 40 mg PO DAILY #30 tablet 08/08/21 Unknown Rx amLODIPine 5 mg PO DAILY tablet 08/08/21 Unknown Rx lamoTRIgine [LaMICtal] 200 mg PO BID 15 Days #60 tablet NS 10/12/21 Unknown Rx lamoTRIgine [Lamictal] 200 mg PO BID 15 Days #30 tab NS 10/12/21 Unknown Rx levETIRAcetam [Keppra] 1,000 mg PO BID 15 Days #60 10/12/21 Unknown Rx oral.liqd NS ED Physical Exam - General Limitations: No Limitations General appearance: alert, in no apparent distress - Head Head exam: Present: atraumatic, normal inspection - Eye Eye exam: Present: normal appearance Pupils: Present: normal accommodation - ENT ENT exam: Present: normal exam, normal orophraynx, mucous membranes moist, TM's normal bilaterally - Neck Neck exam: Present: normal inspection, full ROM. Absent: tenderness, meningismus - Respiratory Respiratory exam: Present: normal lung sounds bilaterally. Absent: respiratory distress, accessory muscle use - Cardiovascular Cardiovascular Exam: Present: regular rate, normal rhythm, normal heart sounds - GI/Abdominal GI/Abdominal exam: Present: soft, normal bowel sounds. Absent: distended, tenderness - Extremities Exam Extremities exam: Present: normal inspection, full ROM, normal capillary refill. Absent: tenderness - Back Exam Back exam: Present: normal inspection. Absent: tenderness - Neurological Exam Neurological exam: Present: alert, oriented X3 - Psychiatric Psychiatric exam: Present: normal affect, normal mood - Skin Skin exam: Present: warm, intact, normal color ED Course Vital Signs 10/11/21 10/12/21 10/12/21 21:23 09:20 09:31 Temperature 98.1 F Pulse Rate 84 75 67 Respiratory 18 13 15 Rate Blood Pressure 188/103 Blood Pressure [Left] O2 Sat by Pulse 100 92 100 Oximetry 10/12/21 10/12/21 10/12/21 09:45 10:01 10:15 Temperature Pulse Rate 63 66 76 Respiratory 10 L 10 L 19 Rate Blood Pressure 195/92 195/92 Blood Pressure [Left] O2 Sat by Pulse 100 100 69 L Oximetry 10/12/21 10/12/21 10/12/21 10:31 10:47 11:00 Temperature Pulse Rate 70 82 71 Respiratory 11 L 12 16 Rate Blood Pressure 195/92 195/92 197/84 Blood Pressure [Left] O2 Sat by Pulse Oximetry 10/12/21 10/12/21 10/12/21 11:23 11:31 11:45 Temperature Pulse Rate 86 80 Respiratory 12 17 Rate Blood Pressure 183/115 183/115 183/115 Blood Pressure [Left] O2 Sat by Pulse 72 L 99 Oximetry 10/12/21 10/12/21 10/12/21 12:01 12:11 12:15 Temperature Pulse Rate 67 65 Respiratory 15 17 Rate Blood Pressure 171/92 171/92 Blood Pressure [Left] O2 Sat by Pulse 100 Oximetry 10/12/21 10/12/21 10/12/21 12:31 12:48 13:01 Temperature Pulse Rate 72 105 H 71 Respiratory 15 17 14 Rate Blood Pressure 178/95 178/95 167/78 Blood Pressure [Left] O2 Sat by Pulse Oximetry 10/12/21 10/12/21 10/12/21 13:15 13:31 13:45 Temperature Pulse Rate 70 70 73 Respiratory 13 9 L 12 Rate Blood Pressure 167/78 176/96 176/96 Blood Pressure [Left] O2 Sat by Pulse Oximetry 10/12/21 10/12/21 14:01 14:14 Temperature Pulse Rate 76 74 Respiratory 13 18 Rate Blood Pressure 160/88 Blood Pressure 165/69 [Left] O2 Sat by Pulse 100 Oximetry - Reevaluation(s) Reevaluation #1: 10/12/21 09:28 here with seizure episode after running out of her keppra and Lamictal--we will go ahead and check Keppra level and immediately give 1 g of Keppra for seizure stability. We will also order routine lab that include CBC, CMP, UA and UDS and start IV fluids for hydration. Patient also complained of chronic lower back pain that worsened after the seizure episode so we will go ahead and give fentanyl 50 mcg for pain control. 10/12/21 13:57 Patient reported feeling much better and ready to go home--I will go ahead and discharge patient home with short course of Keppra to give time to follow-up with her primary doctor. ED Medical Decision Making - Lab Data Result diagrams: 10/12/21 11:04 10/12/21 11:04 Critical care attestation.: If time is entered above; I have spent that time in minutes in the direct care of this critically ill patient, excluding procedure time. ED Disposition Clinical Impression: Seizure, Acute exacerbation of chronic low back pain Disposition: 01 HOME / SELF CARE / HOMELESS Is pt being admited?: No Does the pt Need Aspirin: No Condition: Stable Instructions: Chronic Back Pain, [id number], Seizure, Adult, [id number] Additional Instructions: Call your primary doctor and follow-up with your chronic back pain for further evaluation and treatment You have been given a week worth of Keppra to continue to help you with your seizure until you follow-up with your primary doctor Please do not hesitate to call or return to emergency if your symptoms worsen Prescriptions: levETIRAcetam [Keppra] 1,000 mg PO BID 15 Days #60 oral.liqd NS lamoTRIgine [LaMICtal] 200 mg PO BID 15 Days #60 tablet NS lamoTRIgine [Lamictal] 200 mg PO BID 15 Days #30 tab NS Referrals: PRIMARY CARE, [Primary Care Provider] - 3-5 Days
[2021-10-12] MEDS ORDERED: diphenhydrAMINE 50 MG/ML VIAL IV ONE (11:04)
[2021-10-12 12:01] LABS: Basophils # (Auto) 0.1 K/mm3 (0.0-0.1); Basophils % (Auto) 1.2 % (0.0-1.8); Eosinophils % (Auto) 0.7 % (0.0-4.3); Hematocrit 34.7 % (30.3-42.9); Hemoglobin 11.1 gm/dl (10.1-14.3); Lymphocytes # (Auto) 2.6 K/mm3 (1.2-5.4); Lymphocytes % (Auto) 50.5 % (13.4-35.0); Mean Corpuscular HGB Conc 32 % (30-34); Mean Corpuscular Volume 98 fl (79-97); Monocytes # (Auto) 0.3 K/mm3 (0.0-0.8); Monocytes % (Auto) 6.7 % (0.0-7.3); Platelet Count 262 K/mm3 (140-440); Red Blood Count 3.55 M/mm3 (3.65-5.03); Red Cell Distribution Width 13.2 % (13.2-15.2)
[2021-10-12 12:04] LABS: Alanine Aminotransferase 8 units/L (7-56); Albumin 4.6 g/dL (3.9-5); BUN/Creatinine Ratio 12; Blood Urea Nitrogen 12 mg/dL (7-17); Calcium 9.9 mg/dL (8.4-10.2); Hemolysis Index 2
[2021-10-12 12:11] LABS: INR 0.92 (0.87-1.13)
[2021-10-12 12:12] LABS: Partial Thromboplastin Time 49.5 Sec. (24.2-36.6)
[2021-10-12 12:26] LABS: Bilirubin,Urine NEG (Negative); Blood,Urine NEG (Negative); Color,Urine Straw (Yellow); Protein,Urine <15 mg/dL mg/dL (Negative); RBC,Urine < 1.0 /HPF (0.0-6.0); Urobilinogen,Urine < 2.0 mg/dL (<2.0); WBC,Urine < 1.0 /HPF (0.0-6.0)
[2021-10-12 12:32] LABS: Amphetamine Screen,Urine Negative; Benzodiazepines Screen,Urine Negative; Cannabinoid Screen,Urine Negative; Cocaine Screen,Urine Negative; Methadone Screen,Urine Negative; Opiate Screen,Urine Negative
[2021-10-12 14:15] VITALS: BP 165/69
== END 2021-10-12 14:14 | disposition home or self-care (01) ==
LOC: ED 21:18
DX: R56.9 Unspecified convulsions (principal); M54.50 Low back pain, unspecified; I10 Essential (primary) hypertension; K21.9 Gastro-esophageal reflux disease without esophagitis; M19.90 Unspecified osteoarthritis, unspecified site; Z90.49 Acquired absence of other specified parts of digestive tract; Z79.899 Other long term (current) drug therapy
CPT/HCPCS: 36415; 80053; 80177; 80307; 81001; 84443; 85025; 85610; 85730; 96361; 96374; 96375; 99283; J1200; J1953; J2405; J3010; J7030